=== PATIENT | male | born 1945 | race Caucasian/White ===

== ENCOUNTER 2017-06-06 11:20 | Emergency (ER) | payer OTHER ==
--- OUTSIDE RECORDS SUMMARY | 2017-06-06 11:23 | XMS REPORT | Clinical Summary ---
:1945 Author Organization [facility] Address [address] [place] [id number] Care Team Providers Name Role Phone Roverto Goddard Primary Care Provider Allergies Active Allergy Reactions Severity Noted Date Comments Carbamazepine 11/28/2015 Levofloxacin 11/28/2015 Atorvastatin Anaphylaxis High 11/28/2015 Niacin 11/28/2015 Penicillins 11/28/2015 Sulfa (Sulfonamide Antibiotics) 11/28/2015 Current Medications No known medications Active Problems Not on file Social History Tobacco Use Types Packs/Day Years Used Date Never Assessed Sex Assigned at Date Recorded Not on file Last Filed Vital Signs Not on file Plan of Treatment Health Maintenance Due Date Last Done Comments COLONOSCOPY 1995 ZOSTER VACCINE 2005 PNEUMOCOCCAL POLYSACCHARIDE VACCINE AGE 65 AND OVER 2010 PNEUMOCOCCAL-13 2010 INFLUENZA VACCINE 10/05/2016 Results Not on fileafter 06/05/2016 Insurance Payer Benefit Plan / Group Subscriber ID Type Phone Address AETNA AETNA HMO,POS,EPO, MC/EC xxxxxxxxx HMO MEDICARE MEDICARE PART A AND B xxxxxxxxxx Medicare [place] [address] [phone] [place] [id number]
--- NOTE | 2017-06-06 12:27 | RAD REPORT ---
EXAM DESCRIPTION: CT - [id number] - 06/06/2017 12:11 pm CLINICAL HISTORY: Trauma, head and neck injury. COMPARISON: 04/15/2017, 11/06/2015 TECHNIQUE: Axial 5 mm thick images of the head were obtained. Axial 2 mm thick images of the cervical spine were obtained with sagittal and coronal reconstruction images generated and reviewed. All CT scans are performed using dose optimization technique as appropriate and may include automated exposure control or mA/KV adjustment according to patient size. FINDINGS: CT HEAD WITHOUT CONTRAST: No acute hemorrhage, hydrocephalus or extra-axial collection is identified.Mild generalized brain atr ophy is present with mild periventricular and deep white matter chronic microvascular ischemic change s.No areas of brain edema or midline shift. Mild fluid is seen in the right mastoid air cell. The paranasal sinuses and mastoids are otherwise cl ear.The calvarium is intact. CT CERVICAL SPINE WITHOUT CONTRAST: No fracture or subluxation.No prevertebral soft tissues swelling is identified. Mild cervical spondyl osis present. IMPRESSION: No acute intracranial or cervical spine findings. Mild right mastoid fluid.
--- NOTE | 2017-06-06 12:43 | EDPHYS ---
Physician Documentation [facility] Name: Guillermo Diehl Age: 72 yrs Sex: Male : 1945 Arrival Date: 06/06/2017 Time: 11:22 Bed 8 Private MD: Kevin Falcon ED Physician Donal Miramontes HPI: 06/06 12:40 This 72 yrs old Male presents to ER via Wheelchair with complaints of Fall gs Injury - Yest. 12:40 Details of fall: The patient fell from seated position. Onset: The symptoms/episode gs began/occurred yesterday. Associated injuries: The patient sustained injury to the head, neck injury, anterior aspect of right shoulder. Severity of symptoms: At their worst the symptoms were moderate, in the emergency department the symptoms are unchanged. The patient has experienced similar episodes in the past, a few times. The patient has been recently seen by a physician: the patient's primary care provider. 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 - Social history:: Smoking status: Patient/guardian denies using tobacco. ROS: 12:40 Neuro: Negative for loss of consciousness. gs 12:40 All other systems are negative. Exam: 12:40 Head/Face: Normocephalic, atraumatic. Eyes: Pupils equal round and reactive to light, gs extra-ocular motions intact. Lids and lashes normal. Conjunctiva and sclera are non-icteric and not injected. Cornea within normal limits. Periorbital areas with no swelling, redness, or edema. ENT: Nares patent. No nasal discharge, no septal abnormalities noted. Tympanic membranes are normal and external auditory canals are clear. Oropharynx with no redness, swelling, or masses, exudates, or evidence of obstruction, uvula midline. Mucous membranes moist. Chest/axilla: Normal chest wall appearance and motion. Nontender with no deformity. No lesions are appreciated. Cardiovascular: Regular rate and rhythm with a normal S1 and S2. No gallops, murmurs, or rubs. Normal PMI, no JVD. No pulse deficits. Respiratory: Lungs have equal breath sounds bilaterally, clear to auscultation and percussion. No rales, rhonchi or wheezes noted. No increased work of breathing, no retractions or nasal flaring. Abdomen/GI: Soft, non-tender, with normal bowel sounds. No distension or tympany. No guarding or rebound. No evidence of tenderness throughout. Back: No spinal tenderness. No costovertebral tenderness. Full range of motion. Skin: Warm, dry with normal turgor. Normal color with no rashes, no lesions, and no evidence of cellulitis. Neuro: Awake and alert, GCS 15, oriented to person, place, time, and situation. Cranial nerves II-XII grossly intact. Motor strength 5/5 in all extremities. Sensory grossly intact. Cerebellar exam normal. Normal gait. 12:40 Constitutional: The patient appears alert, awake. 12:40 Neck: C-spine: vertebral tenderness, that is mild. 12:40 Musculoskeletal/extremity: Circulation is intact in all extremities. Sensation intact. Joints: the right shoulder displays deformity, painful range of motion, swelling, tenderness. Vital Signs: 11:29 BP 114 / 64; Pulse 75; Resp 15; Temp 97.8(TE); Pulse Ox 98% on R/A; Weight 69.85 kg lk1 (R); Height 5 ft. 7 in. (170.18 cm) (R); 12:30 BP 118 / 68; Pulse 74; Resp 16; Pulse Ox 100% on R/A; hb 13:30 BP 116 / 70; Pulse 70; Resp 14; Pulse Ox 100% on R/A; hb 11:29 Body Mass Index 24.12 (69.85 kg, 170.18 cm) lk1 MDM: 11:40 Patient medically screened. gs 12:40 Differential diagnosis: closed head injury, contusion, fracture. Data reviewed: vital gs signs, nurses notes. 06/06 11:40 Order name: CT Head C Spine; Complete Time: 12:40 gs Administered Medications: No medications were administered Point of Care Testing: Blood Glucose: 12:38 Blood Glucose: 167 mg/dL; hb Ranges: Critical Glucose Levels:Adult <50 mg/dl or >400 mg/dl <40 mg/dl or >180 mg/dl Disposition: 06/06/17 12:42 Discharged to Home. Impression: Contusion of other part of head. - Condition is Stable. - Discharge Instructions: Head Injury, Adult. - Medication Reconciliation Form, Thank You Letter, Antibiotic Education, Prescription Opioid Use form. - Follow up: Private Physician; When: 2 - 3 days; Reason: Re-evaluation by your physician. Signatures: Dispatcher [employer] Monalisa Traore RN RN lk1 Lucila Carlson RN RN Donal Miramontes MD MD
--- NOTE | 2017-06-06 12:43 | ER ---
Nurse's Notes [facility] Name: Guillermo Diehl Age: 72 yrs Sex: Male : 1945 Arrival Date: 06/06/2017 Time: 11:22 Bed 8 Private MD: Kevin Falcon Diagnosis: Contusion of other part of head Presentation: 06/06 11:25 Presenting complaint: Child states: "He fell last night and it left a knot on his head. lk1 He has pain in his right shoulder. He had a Xray this morning and his shoulder is broken. We talked to his doctor about it after the Xray and he wanted us to have his head checked out because he has had a brain bleed before.". Transition of care: patient was not received from another setting of care. Onset of symptoms was June 05, 2017 at 20:00. Care prior to arrival: None. 11:25 Method Of Arrival: Wheelchair lk1 11:25 Acuity: JOSE 3 lk1 Triage Assessment: 11:28 General: Appears in no apparent distress. Behavior is calm, cooperative, appropriate lk1 for age. Pain: Complains of pain in anterior aspect of right shoulder and posterior aspect of right shoulder. Neuro: Level of Consciousness is awake, alert, obeys commands, Speech is normal, Facial symmetry appears normal. 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 - Social history:: Smoking status: Patient/guardian denies using tobacco. Screenin:40 Abuse screen: Denies threats or abuse. Denies injuries from another. Nutritional aj screening: No deficits noted. Tuberculosis screening: No symptoms or risk factors identified. Fall Risk Fall in past 12 months (25 points). No secondary diagnosis (0 pts). IV access (20 points). Ambulatory Aid- None/Bed Rest/Nurse Assist (0 pts). Gait- Weak (10 pts.). Mental Status- Overestimates/Forgets Limitations (15 pts.). Assessment: 11:40 General: Appears in no apparent distress. comfortable, Behavior is calm, cooperative, aj appropriate for age. Pain: Complains of pain in posterior aspect of right shoulder and anterior aspect of right shoulder. Neuro: Level of Consciousness is awake, alert, obeys commands, Oriented to person, place, time, situation. Respiratory: Airway is patent Respiratory effort is even, unlabored, Respiratory pattern is regular, symmetrical. Derm: Skin is intact, is healthy with good turgor, Skin is pink, warm \\T\\ dry. normal, Bruising that is dark purple, on right side of the back of head. Musculoskeletal: Circulation, motion, and sensation intact. Range of motion: limited in right shoulder Reports pain in posterior aspect of right shoulder and anterior aspect of right shoulder. 12:30 Reassessment: Patient appears in no apparent distress at this time. No changes from hb previously documented assessment. Patient and/or family updated on plan of care and expected duration. Pain level reassessed. 13:30 Reassessment: Patient appears in no apparent distress at this time. No changes from hb previously documented assessment. Patient and/or family updated on plan of care and expected duration. Pain level reassessed. Vital Signs: 11:29 BP 114 / 64; Pulse 75; Resp 15; Temp 97.8(TE); Pulse Ox 98% on R/A; Weight 69.85 kg lk1 (R); Height 5 ft. 7 in. (170.18 cm) (R); 12:30 BP 118 / 68; Pulse 74; Resp 16; Pulse Ox 100% on R/A; hb 13:30 BP 116 / 70; Pulse 70; Resp 14; Pulse Ox 100% on R/A; hb 11:29 Body Mass Index 24.12 (69.85 kg, 170.18 cm) lk1 ED Course: 11:22 Patient arrived in ED. as 11:22 Kevin Falcon MD is Private Physician. as 11:27 Triage completed. lk1 11:29 Arm band placed on right wrist. lk1 11:30 Kandi Padilla, CATRINA is Primary Nurse. aj 11:32 Donal Miramontes MD is Attending Physician. gs 11:40 Patient has correct armband on for positive identification. Placed in gown. Bed in low aj position. Call light in reach. Side rails up X2. Adult w/ patient. Door closed. Noise minimized. Warm blanket given. Pillow given. 11:40 Sling applied to right arm. john paul 12:11 CT Head C Spine In Process Unspecified. EDMS 13:30 No provider procedures requiring assistance completed. IV discontinued, intact, hb bleeding controlled, No redness/swelling at site. Pressure dressing applied. Administered Medications: No medications were administered Point of Care Testing: Blood Glucose: 12:38 Blood Glucose: 167 mg/dL; hb Ranges: Outcome: 12:42 Discharge ordered by . 13:30 Discharged to home via wheelchair, with family. hb 13:30 Condition: stable 13:30 Discharge instructions given to patient, family, Instructed on discharge instructions, follow up and referral plans. Demonstrated understanding of instructions, follow-up care. 13:39 Patient left the ED. hb Signatures: Dispatcher [employer] EDMS Kandi Padilla RN RN aj Martinez, Amelia as Kluge, Leah, RN RN lk1 Lucila Carlson RN RN Donal Miramontes MD MD
[2017-06-06 13:42] VITALS: TEMP 97.8
[2017-06-06 13:43] VITALS: O2SAT 100
[2017-06-06 13:44] VITALS: BP 116/70
== END 2017-06-06 13:39 | disposition home or self-care (01) ==
LOC: ER 11:20
DX: S00.83XA Contusion of other part of head, initial encounter (principal); W18.39XA Other fall on same level, initial encounter; Y93.89 Activity, other specified; I10 Essential (primary) hypertension; Z86.73 Personal history of transient ischemic attack (TIA), and cerebral infarction without residual deficits; Z88.0 Allergy status to penicillin; Z88.2 Allergy status to sulfonamides; Z88.8 Allergy status to other drugs, medicaments and biological substances
CPT/HCPCS: 70450; 72125; 82962; 99283

== ENCOUNTER 2017-11-29 10:27 | Inpatient (IN) | payer OTHER ==
--- OUTSIDE RECORDS SUMMARY | 2017-11-29 10:28 | XMS REPORT | Clinical Summary ---
:1945 Author Organization [facility] Address [address] [place] [address] Care Team Providers Name Role Phone Roverto [...] Health Maintenance Due Date Last Done Comments COLON CANCER SCREENING 1995 SHINGRIX VACCINE (#1) 1995 ZOSTER VACCINE 2005 PNEUMOCOCCAL POLYSACCHARIDE VACCINE AGE 65 AND OVER 2010 PNEUMOCOCCAL-13 2010 INFLUENZA VACCINE 10/05/2017 Results Not on fileafter 11/28/2016 Insurance Payer Benefit Plan / Group Subscriber ID Type Phone Address AETNA AETNA HMO,POS,EPO, MC/EC xxxxxxxxx HMO MEDICARE MEDICARE PART A AND B xxxxxxxxxx Medicare [place] [place] [address] [place] [id number]
--- OUTSIDE RECORDS SUMMARY | 2017-11-29 10:30 | XMS REPORT | Continuity of Care Document ---
:1945 Author Organization Interface Problems Problem Status Onset Classification Date Comments Source Date Reported FALL Active [address] SDH Active [address] Center LILY LIFE Active [facility] FLIGHT Medical BILLING#[id number] [place] CVA (<span Resolved Problem 11/12/2015 [facility] ID="[id number] Medical 67">Confirmed< Center /span>) DM (<span Resolved Problem 11/12/2015 [facility] ID="[id number] Medical 39">Confirmed< Center /span>) HTN (<span Resolved Problem 11/12/2015 [facility] ID="[id number] Medical 93">Confirmed< Center /span>) Seizure Resolved Problem 11/12/2015 [facility] SUBDURAL Active [facility] HEMORRHAGE DUE Medical TO Center INJURY Medications Medication Details Route Status Patient Ordering Order Source Instructions Provider Date Vimpat 100 mg, 1 tab, No Longer [facility] Route: PO, Active 016 Medical Drug form: Center TAB, Q12H, Dosing Weight 81.818, kg, Start date: 11/08/15 21:00:00 CDT, Duration: 30 day, Stop date: 12/08/15 9:00:00 CDTNotes: Same as: Vimpat Physical See Active [facility] Therapy Instructions, 016 [facility] CHANELLE AVINA Center Evaluate and Treat ___ times per week for ____ weeks, # 1 box, 0 Refill(s) Occupational See Active [facility] Therapy Instructions, 016 [facility] CHANELLE AVINA Center Evaluate and Treat ___ times per week for ____ weeks, # 1 box, 0 Refill(s) Streptococcus 0.5 mL, Route: Inactive [facility] pneumoniae IM, Drug Form: 016 [facility] serotype 1 INJ, Daily, [place] capsular Start date: antigen 11/08/15 diphtheria 9:00:00 CDT, [id number] protein Duration: 1 conjugate doses or vaccine / times, Stop Streptococcus date: 11/08/15 pneumoniae 9:00:00 serotype 14 CDTNotes: capsular Lightly roll antigen vial (DO NOT diphtheria SHAKE) before [id number] protein administration conjugate . (Same as: vaccine / Prevnar 13) Streptococcus pneumoniae serotype 18C capsular antigen d Calmoseptine 1 appl, Route: No Longer [facility] TOP, TID, Drug Active 016 Medical form: OINT, Center PRN Rash, Start date: 11/07/15 9:16:00 CDT, Duration: 30 day, Stop date: 12/07/15 9:15:00 CDTNotes: (Same as: Calmoseptine) Vitamin C 1,000 mg, 2 No Longer [facility] tab, Route: Active 016 Medical PO, Drug form: Center TAB, Daily, Dosing Weight 81.818, kg, Start date: 11/07/15 9:00:00 CDT, Duration: 30 day, Stop date: 12/06/15 9:00:00 CDTNotes: (Same as: Vitamin C) Finasteride 5 mg, 1 tab, No Longer [facility] Route: PO, Active 016 Medical Drug form: Center TAB, Daily, Dosing Weight 81.818, kg, Start date: 11/07/15 9:00:00 CDT, Duration: 30 day, Stop date: 12/06/15 9:00:00 CDTNotes: (Same as: Proscar) "Do Not Crush" Women of childbearing age should not touch or handle broken tablets Lisinopril 10 mg, 1 tab, No Longer [facility] Route: PO, Active 016 Medical Drug form: Center TAB, Daily, Dosing Weight 81.818, kg, Start date: 11/07/15 9:00:00 CDT, Duration: 30 day, Stop date: 12/06/15 9:00:00 CDTNotes: (Same as: Prinivil, Zestril) Vimpat 100 mg, 1 tab, No Longer [facility] Route: PO, Active 016 Medical Drug form: Center TAB, Q12H, Dosing Weight 81.818, kg, Start date: 11/06/15 21:00:00 CDT, Duration: 30 day, Stop date: 12/06/15 9:00:00 CDTNotes: Same as: Vimpat Saline Flush 10 ml, Route: No Longer [facility] 0.9% IVP, Drug Active 016 Medical Form: INJ, Center Dosing Weight 81.818, kg, Q12H, Start date: 11/06/15 21:00:00 CDT, Duration: 30 day, Stop date: 12/06/15 9:00:00 CDTNotes: (Same as: BD Posiflush) Docusate 100 mg, 1 cap, No Longer [facility] Route: PO, Active Medical Drug form: Center CAP, Q12H, Dosing Weight 81.818, kg, Start date: 11/06/15 21:00:00 CDT, Duration: 30 day, Stop date: 12/06/15 9:00:00 CDTNotes: (Same as: Colace) (Do Not Crush) sennosides, ASSISTED 8.6 mg, 1 tab, No Longer [facility] Route: PO, Active Medical Drug Form: Center TAB, Dosing Weight 81.818, kg, Q12H, Start date: 11/06/15 21:00:00 CDT, Duration: 30 day, Stop date: 12/06/15 9:00:00 CDTNotes: (Same as: Senokot) Levetiracetam 500 mg, 1 tab, No Longer [facility] Route: PO, Active Medical Drug form: Center TAB, Q12H, Dosing Weight 81.818, kg, Start date: 11/06/15 21:00:00 CDT, Duration: 7 day, Stop date: 11/13/15 9:00:00 CDTNotes: (Same as:Keppra) lisinopril 10 10 mg=1 tab, Active [facility] mg oral tablet PO, Daily, 0 016 Medical Refill(s) Center 24 HR Metformin 1,000 mg=1 Active [facility] hydrochloride tab, PO, 016 Medical 1000 MG Daily, 0 Center Extended Refill(s) Release Tablet rivaroxaban 20 20 mg=1 tab, No Longer [facility] [place] MG Oral Tablet PO, QPM, # 30 Active 016 Medical [Xarelto] tab, 3 Center Refill(s) Vitamin C 1000 1,000 mg=1 Active [place] mg oral tablet tab, PO, 016 Medical Daily, 0 Center Refill(s) finasteride 5 5 mg=1 tab, Active [place] mg oral tablet PO, Daily, 0 016 Medical Refill(s) [place] Glipizide 10 MG 10 mg=1 tab, Active [place] Oral Tablet PO, BID, 0 016 Medical Refill(s) Center lacosamide 100 100 mg=1 tab, Active [place] MG Oral Tablet PO, BID, 0 016 Medical [Vimpat] Refill(s) [facility] Hydralazine 20 mg, 1 mL, No Longer [facility] Route: IVP, Active [facility] Drug form: Center INJ, Q4H, Dosing Weight 81.818, kg, PRN Hypertension, Start date: 11/06/15 19:57:00 CDT, Duration: 30 day, Stop date: 12/06/15 19:56:00 CDTNotes: (Same as: Apresoline) Push over 5 minutes Neutra-Phos 2 pkt, Route: No Longer [facility] PO, Drug Form: Active [facility] PDR/REC, Center Dosing Weight 81.818, kg, PRN, PRN Abnormal Lab Result, FOR ICU USE ONLY, Start date: 11/06/15 19:42:00 CDT, Duration: 30 day, Stop date: 12/06/15 19:41:00 CDTNotes: (Same as: Neutra-Phos) Each 1.25 gm pkt has 250mg phosphorous. Mix w/2.5oz water and stir. potassium 45 mmol, 15 No Longer [facility] phosphate + mL, Route: Active 016 Medical sodium chloride IVPB, PRN, Center 0.9% INJ 250 mL Dosing Weight 81.818, kg, PRN Abnormal Lab Result, Start date: 11/06/15 19:42:00 CDT, Duration: 30 day, Stop date: 12/06/15 19:41:00 CDT, FOR ICU USE ONLYNotes: (Same as: K Phosphate.) 1 mMol phoshate has 1.47 mEq potassium Infuse over 4 hours sodium 45 mmol, 15 No Longer [facility] phosphate + mL, Route: Active 016 Medical sodium chloride IVPB, PRN, Center 0.9% INJ 250 mL Dosing Weight 81.818, kg, PRN Abnormal Lab Result, Start date: 11/06/15 19:42:00 CDT, Duration: 30 day, Stop date: 12/06/15 19:41:00 CDT, FOR ICU USE ONLY potassium 20 mEq, 100 No Longer [facility] chloride mL, Route: Active 016 Medical IVPB, Drug Center form: INJ, PRN, Dosing Weight 81.818, kg, PRN Abnormal Lab Result, Via central line, Start date: 11/06/15 19:42:00 CDT, Duration: 30 day, Stop date: 12/06/15 19:41:00 CDT, FOR ICU USE ONLYNotes: (Same as: KCL) Infuse no faster than 10 mEq/hr if given peripherally. Calcium 1,000 mg, 2 No Longer [facility] Carbonate 500 tab, Route: Active Medical MG Chewable PO, Drug form: Center Tablet CHEWTAB, PRN, Dosing Weight 81.818, kg, PRN Abnormal Lab Result, FOR ICU USE ONLY, Start date: 11/06/15 19:42:00 CDT, Duration: 30 day, Stop date: 12/06/15 19:41:00 CDTNotes: (Same As: Tumaden) Calcium Carbonate 500 vv=723 mg elemental calcium Dose= mg calcium carbonate ( mg elemental calcium) Calcium 1 gm, 10 mL, No Longer [facility] Gluconate Route: IVPB, Active 016 Medical PRN, Dosing Center Weight 81.818, kg, PRN Abnormal Lab Result, Start date: 11/06/15 19:42:00 CDT, Duration: 30 day, Stop date: 12/06/15 19:41:00 CDT, FOR ICU USE ONLYNotes: WASTE: F/P - Sink; E - Municipal Trash Bin Magnesium Oxide 800 mg, 2 tab, No Longer [facility] [place] Route: PO, Active 016 Medical Drug form: Center TAB, PRN, Dosing Weight 81.818, kg, PRN Abnormal Lab Result, FOR ICU USE ONLY, Start date: 11/06/15 19:42:00 CDT, Duration: 30 day, Stop date: 12/06/15 19:41:00 CDTNotes: (Same as: Mag-Ox 400) Magnesium oxide [id number] elemental magnesium Dose=____mg magnesium oxide (___mg elemental magnesium) Magnesium 2 gm, 50 mL, No Longer [place] Sulfate Route: IVPB, Active 016 Medical Drug form: Center INJ, PRN, Dosing Weight 81.818, kg, PRN Abnormal Lab Result, Start date: 11/06/15 19:42:00 CDT, Duration: 30 day, Stop date: 12/06/15 19:41:00 CDT, FOR ICU USE ONLYNotes: WASTE: F/P - Sink; E - Municipal Trash Bin tramadol 50 mg, 1 tab, No Longer [place] hydrochloride Route: PO, Active 016 Medical 50 MG Oral Drug form: Center Tablet TAB, Q6H, Dosing Weight 81.818, kg, PRN Pain Score 4-6, Start date: 11/06/15 19:42:00 CDT, Duration: 30 day, Stop date: 12/06/15 19:41:00 CDTNotes: Not to exceed 400mg/day. (Same As: Ultram) Acetaminophen 650 mg, 2 tab, No Longer [place] Route: PO, Active 016 Medical Drug form: Center TAB, Q6H, Dosing Weight 81.818, kg, PRN Pain 1-3/Temp > 100.4 F, Start date: 11/06/15 19:42:00 CDT, Duration: 30 day, Stop date: 12/06/15 19:41:00 CDTNotes: Do not exceed 4 gm/day. (Same as: Tylenol) Dextrose 50% 6.25 gm, 12.5 No Longer [place] Syringe mL, Route: Active 016 Medical IVP, Drug Center Form: INJ, Dosing Weight 81.818, kg, PRN, PRN Abnormal Lab Result, Start date: 11/06/15 18:05:00 CDT, Duration: 30 day, Stop date: 12/06/15 18:04:00 CDT Regular 3 unit, 0.03 No Longer [facility] Insulin, Human mL, Route: Active 016 Medical 100 UNT/ML SUB-Q, Drug Center Injectable form: SOLN, Solution PRN, Dosing Weight 81.818, kg, PRN Abnormal Lab Result, Start date: 11/06/15 18:05:00 CDT, Duration: 30 day, Stop date: 12/06/15 18:04:00 CDTNotes: (Same as: Humulin R) Roll in palms of hands gently; Do not shake vigorously. "single patient use only" (Restricted to patients requiring a dose > 60 units) WASTE: F/P - Black; E - Municipal Trash Bin Stable for 28 days at room temperature Expires in days from Date Saline Flush 10 ml, Route: No Longer [facility] 0.9% IVP, Drug Active 016 Medical Form: INJ, Center Dosing Weight 81.818, kg, PRN, PRN Line Flush, Start date: 11/06/15 18:05:00 CDT, Duration: 30 day, Stop date: 12/06/15 18:04:00 CDTNotes: (Same as: BD Posiflush) Bisacodyl 10 mg, 1 supp, No Longer [facility] Route: AR, Active 016 Medical Drug form: [place] SUPP, Daily, Dosing Weight 81.818, kg, PRN Constipation, Start date: 11/06/15 18:05:00 CDT, Duration: 30 day, Stop date: 12/06/15 18:04:00 CDTNotes: (Same As: Dulcolax, Bisco-Lax) Ondansetron 4 mg, 2 mL, No Longer [facility] Route: IVP, Active 016 Medical Drug form: [place] INJ, Q8H, Dosing Weight 81.818, kg, PRN Nausea & Vomiting, Start date: 11/06/15 18:05:00 CDT, Duration: 30 day, Stop date: 12/06/15 18:04:00 CDTNotes: (Same as: Zofran) MEDICATION WASTE Product Size: 4 mg Product Wasted: 0 mg Sodium Chloride 1,000 mL, No Longer [facility] 0.154 MEQ/ML Rate: 75 Active 016 Medical Injectable ml/hr, Infuse Center Solution over: 13.3 hr, Route: IV, Dosing Weight 81.818 kg, Total Volume: 1,000, Start date: 11/06/15 18:05:00 CDT, Duration: 30 day, Stop date: 12/06/15 18:04:00 CDT Levetiracetam 1,000 mg, Inactive [facility] Route: IVPB, Medical ONCE, Dosing Center Weight 81.818, kg, Start date: 11/06/15 18:05:00 CDT, Stop date: 11/06/15 18:05:00 CDTNotes: Same as Keppra Mix with 100 mL NS, LR or D5W MEDICATION WASTE Product Size: 500 mg Product Wasted: 0 mg Acetaminophen 1 tab, Route: Inactive [facility] 325 MG / PO, Drug Form: Medical Hydrocodone TAB, Dosing Center Bitartrate 10 Weight 81.818, MG Oral Tablet kg, Q4H, PRN Pain Score 4-6, Start date: 11/06/15 18:05:00 CDT, Duration: 30 day, Stop date: 12/06/15 18:04:00 CDTNotes: Do not exceed 4gm/day of acetaminophen. (Same as: [place] 325/10) Acetaminophen 1 tab, Route: Inactive [facility] 325 MG / PO, Drug Form: Medical Hydrocodone TAB, Dosing Center Bitartrate 5 MG Weight 81.818, Oral Tablet kg, Q4H, PRN Pain Score 1-3, Start date: 11/06/15 18:05:00 CDT, Duration: 30 day, Stop date: 12/06/15 18:04:00 CDTNotes: (Same as: [place] 325/5) Do not exceed 4gm/day of acetaminophen. Saline Flush 10 mL, Route: No Longer [facility] 0.9% IVP, Drug Active 016 Medical Form: INJ, Center Dosing Weight 81.818, kg, PRN, PRN Line Flush, Start date: 11/06/15 16:54:00 CDT, Duration: 30 day, Stop date: 12/06/15 16:53:00 CDTNotes: (Same as: BD Posiflush) Metformin PO, 0 Inactive [facility] Refill(s) [address] [place] [address] Lisinopril PO, Daily, 0 Inactive [facility] Refill(s) [address] [place] [address] 3 ML SUB-Q, Daily, Active [facility] liraglutide 6 PRN Abnormal [address] [place] [address] MG/ML Prefilled Lab Result, [place] Syringe Given PRN is [Victoza] glucose >250, 0 Refill(s) Xarelto PO, 0 Inactive [facility] Refill(s) [address] [place] [address] Vitamin C 0 Refill(s) Inactive [address] Finasteride PO, Daily, 0 Inactive [facility] Refill(s) [address] [place] [address] Gl[facility]ide [facility], Daily, [address] [address] [place] [address] Vimpat BID, [address] [address] [place] [address] Allergies, Adverse Reactions, Alerts Substance Category Reaction Severity Reaction Status Date Comments Source type Reported Levaquin Assertion Drug Active [facility] Lipitor Assertion Drug Active [facility] niacin Assertion Drug Active [facility] penicillins Assertion Drug Active [facility] sulfa drugs Assertion Drug Active [facility] Immunizations Immunization Date Given Site Status Last Updated Comments Source pneumococcal 11/08/2015 Not Given [facility] 13valent vaccine [facility] Results Order Name Results Value Reference Date Interpretation Comments Source Range CHEM PANEL Magnesium Lvl 2.2 mg/dL 1.8 - 2.4 11/[address] CHEM PANEL Phosphorus 2.6 mg/dL 2.5 - 4.5 11/[address] ELECTROLYTE AGAP 15.2 meq/L 10.0 - 11/07 [facility] S 20.0 [facility] ELECTROLYTE Sodium Lvl 140 meq/L 135 - 145 11/07 [facility]2015 [facility] ELECTROLYTE Potassium Lvl 4.2 meq/L 3.5 - 5.1 11/07 [facility] ELECTROLYTE Chloride Lvl 108 meq/L 95 - 109 11/07 [facility] ELECTROLYTE CO2 21 meq/L 24 - 32 11/07 [facility] 2015 [facility] ELECTROLYTE Glucose Lvl 171 mg/dL 70 - 99 11/07 [facility] ELECTROLYTE BUN 13 mg/dL 7 - 22 11/07 [facility] 2015 [facility] ELECTROLYTE Creatinine 1.03 mg/dL 0.50 - 11/07 [facility] Lvl 1.40 [facility] ELECTROLYTE eGFR 73 11/07 Result Comment: The eGFR is calculated using the CKD-EPI formula. In most young, healthy individuals the eGFR will be >90 mL/ min/1.73m2. The eGFR declines with age. An eGFR of 60-89 may be normal in [facility] mL/min/1.7 some populations, particularly the elderly, for whom the CKD-EPI formula has not been extensively validated. Use of the eGFR is not recommended in the following populations: [address] Individuals with unstable creatinine concentrations, including patients and those with serious co-morbid conditions. Patients with extremes in muscle mass or diet. The data above are obtained from the National Kidney Disease Education Program (NKDEP) which additionally recommends that when the eGFR is used in patients with extremes of body mass index for purposes of drug dosing, the eGFR should be multiplied by the estimated BMI. ELECTROLYTE Calcium Lvl 9.2 mg/dL 8.5 - 10.5 11/07 [facility] HEMATOLOGY Lymphocytes 29.2 % 20.0 - 09 [facility] 40.0 [facility] HEMATOLOGY Segs 57.6 % 45.0 - 11/07 [facility] 75.0 [facility] HEMATOLOGY Eosinophils 5.6 % 0.0 - 4.0 11/07 2015 [facility] HEMATOLOGY Monocytes 6.7 % 2.0 - 12.0 11/[address] HEMATOLOGY Basophils # 0.1 K/CMM 0.0 - 0.2 11/07 [facility]2015 [facility] HEMATOLOGY Eosinophils # 0.5 K/CMM 0.0 - 0.5 11/[address] HEMATOLOGY Lymphocytes # 2.4 K/CMM 1.0 - 5.5 11/[address] HEMATOLOGY Segs-Bands # 4.8 K/CMM 1.5 - 8.1 11/07 [facility] HEMATOLOGY Basophils 0.9 % 0.0 - 1.0 11/07 [facility] HEMATOLOGY Monocytes # 0.6 K/CMM 0.0 - 0.8 11/07 [facility] HEMATOLOGY Hct 42.5 % 42.0 - 11/07 54.0 [facility] HEMATOLOGY Hgb 14.5 g/dL 14.0 - 11/07 18.0 [facility] HEMATOLOGY RBC 4.63 M/CMM 4.70 - 11/07 [place] 6.10 /2015 [facility] HEMATOLOGY WBC 8.4 K/CMM 3.7 - 10.4 11/07 [facility] HEMATOLOGY MPV 9.8 fL 7.4 - 10.4 11/07 [facility] HEMATOLOGY MCV 91.9 fL 80.0 - 11/07 [facility] 94.0 [facility] HEMATOLOGY Platelet 248 K/CMM 133 - 450 11/07 [facility] HEMATOLOGY RDW 13.7 % 11.5 - 11/07 14.5 [facility] HEMATOLOGY MCHC 34.2 g/dL 32.0 - 11/07 [place] 36.0 [facility] HEMATOLOGY MCH 31.4 pg 27.0 - 11/07 [place] 31.0 [facility] PARATHYROID Ca Norm WB 1.07 1.05 - 11/07 [facility] PROFILE mMol/L 1. [facility] PARATHYROID Ca Ion WB 1.06 1.05 - 11/07 [facility] PROFILE mMol/L 1. [facility] BACTERIAL - MRSA by PCR Negative 11/06 [facility] SEROLOGY [facility] (11/07/15 9:00 AM) [place] CARDIAC Troponin-T null 0.000 - 11/06 [facility] ENZYMES 0.100 /2015 [facility] CARDIAC Troponin-I null 0.00 - 11/06 [facility] ENZYMES 0.40 /2015 [facility] CARDIAC Total CK 45 unit/L - 11/06 [facility] ENZYMES /2015 [facility] CARDIAC Total CK 45 unit/L - 11/06 [facility] ENZYMES /2015 [facility] CARDIAC Troponin-I null 0.00 - 11/06 [facility] ENZYMES 0.40 /2015 [facility] CHEM PANEL Globulin 3.7 g/dL 2.7 - 4.2 11/[address] CHEM PANEL A/G Ratio 0.9 0.7 - 1.6 11/[address] CHEM PANEL Total Protein 7.2 g/dL 6.4 - 8.4 11/[address] CHEM PANEL Albumin Lvl 3.5 g/dL 3.5 - 5.0 11/[address] CHEM PANEL Alk Phos 67 unit/L 39 - 136 11/[address] CHEM PANEL ALT 24 unit/L 0 - 65 11/[address] CHEM PANEL AST 10 unit/L 0 - 37 11/[address] CHEM PANEL Bili Indirect 0.4 mg/dL 0.0 - 1.0 11/[address] CHEM PANEL Bili Total 0.5 mg/dL 0.2 - 1.3 11/[address] CHEM PANEL Bili Direct 0.1 mg/dL 0.0 - 0.3 11/[address] CHEM PANEL Phosphorus 2.1 mg/dL 2.5 - 4.5 11/[address] CHEM PANEL Magnesium Lvl 1.8 mg/dL 1.8 - 2.4 11/[address] CHEM PANEL eGFR 63 11/06 Result Comment: The eGFR is calculated using the CKD-EPI formula. In most young, healthy individuals the eGFR will be >90 mL/ min/1.73m2. The eGFR declines with age. An eGFR of 60-89 may be normal in [facility] mL/min/1.7 some populations, particularly the elderly, for whom the CKD-EPI formula has not been extensively validated. Use of the eGFR is not recommended in the following populations: [address] Individuals with unstable creatinine concentrations, including patients and those with serious co-morbid conditions. Patients with extremes in muscle mass or diet. The data above are obtained from the National Kidney Disease Education Program (NKDEP) which additionally recommends that when the eGFR is used in patients with extremes of body mass index for purposes of drug dosing, the eGFR should be multiplied by the estimated BMI. CHEM PANEL Calcium Lvl 8.9 mg/dL 8.5 - 10.5 11/[address] CHEM PANEL Creatinine 1.17 mg/dL 0.50 - 09 [facility] Lvl 1.40 /2015 [facility] CHEM PANEL BUN 13 mg/dL 7 - 22 11/06 [facility]2015 [facility] CHEM PANEL Sodium Lvl 142 meq/L 135 - 145 11/[address] CHEM PANEL Potassium Lvl 3.9 meq/L 3.5 - 5.1 11/[address] CHEM PANEL Chloride Lvl 107 meq/L 95 - 109 11/06 [facility] CHEM PANEL AGAP 15.9 meq/L 10.0 - 11/06 [facility] 20.0 [facility] CHEM PANEL CO2 23 meq/L 24 - 32 11/[address] CHEM PANEL Glucose Lvl 205 mg/dL 70 - 99 11/[address] HEMATOLOGY Monocytes # 0.7 K/CMM 0.0 - 0.8 11/[address] HEMATOLOGY Basophils # 0.1 K/CMM 0.0 - 0.2 11/[address] HEMATOLOGY Lymphocytes # 2.5 K/CMM 1.0 - 5.5 11/[address] HEMATOLOGY Eosinophils # 0.4 K/CMM 0.0 - 0.5 11/06 [facility] [address] [place] [address] HEMATOLOGY Segs 67.4 % 45.0 - 11/06 [facility] 75.0 /2015 [facility] HEMATOLOGY Monocytes 6.3 % 2.0 - 12.0 11/[address] HEMATOLOGY Lymphocytes 21.4 % 20.0 - 11/06 [facility] 40.0 [facility] HEMATOLOGY Segs-Bands # 7.8 K/CMM 1.5 - 8.1 11/[address] HEMATOLOGY Eosinophils 3.8 % 0.0 - 4.0 11/[address] HEMATOLOGY Basophils 1.1 % 0.0 - 1.0 11/[address] HEMATOLOGY TEG Interp Thrombelas 11/06 [facility] show shortened value of R. 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.CPT :26330 HEMATOLOGY Ly30 3.9 % 0.0 - 7.5 11/06 [facility] [address] [place] [address] HEMATOLOGY TEG Data See Note 11/06 [facility] [place] /[address] [place], [place] [id number]/07/15 12:43 AM) [facility] HEMATOLOGY Coag Index 2.2 -3.0-3.0 - 11/06 [place] 3.0 [facility] HEMATOLOGY G-value 11.0 K 4.5 - 11.0 11/06 [facility] d/sc /2015 [facility] HEMATOLOGY R-time 4.8 min 5.0 - 10.0 11/06 [facility] HEMATOLOGY Angle 69.2 53.0 - 11/06 [facility] degrees 72.0 [facility] HEMATOLOGY Max Amp 68.8 mm 50.0 - 11/06 [place] 70.0 [facility] HEMATOLOGY K-time 1.5 min 1.0 - 3.0 11/06 [facility] HEMATOLOGY INR 1.16 0.85 - 11/06 [place] 1.17 [facility] HEMATOLOGY PT 15.1 s 12.0 - 11/06 [place] 14.7 /2015 [facility] HEMATOLOGY PTT 32.9 s 22.9 - 11/06 [place] 35.8 [facility] HEMATOLOGY MCV 91.2 fL 80.0 - 11/06 [place] 94.0 [facility] HEMATOLOGY Hct 42.1 % 42.0 - 11/06 [place] 54.0 /2015 [facility] HEMATOLOGY MCHC 33.1 g/dL 32.0 - 09 [place] 36.0 [facility] HEMATOLOGY Platelet 251 K/CMM 133 - 450 11/06 [facility] HEMATOLOGY RDW 13.5 % 11.5 - 11/06 [place] 14.5 [facility] HEMATOLOGY MPV 10.0 fL 7.4 - 10.4 11/06 [facility] HEMATOLOGY RBC 4.62 M/CMM 4.70 - 11/06 [place] 6.10 [facility] HEMATOLOGY Hgb 13.9 g/dL 14.0 - 11/06 [place] 18.0 [facility] HEMATOLOGY WBC 11.6 K/CMM 3.7 - 10.4 11/06 [facility] HEMATOLOGY MCH 30.2 pg 27.0 - 11/06 [place] 31.0 [facility] PARATHYROID Ca Ion WB 1.17 1.05 - 11/06 [facility] PROFILE mMol/L 1.25 [facility] PARATHYROID Ca Norm WB 1.17 1.05 - 11/06 [facility] PROFILE mMol/L 1.25 [facility] Chest 1view Chest 1view EXAM: XR CHEST 1 VIEW 11/06 - [facility] [place] DX DX /2015 - Medical This report was dictated by a Imaging System Administrator/Fellow. I have personally reviewed the images as Center well as the Resident's interpretation and agree with the findings. DATE: 11/07/2015 3:00 AM CDT Read by: Lex Helm MD Resident: Lex Helm MD Dictated Date/time: 11/07/15 02:05 Electronically Signed by: Og Morley 11/07/15 07:39 FINAL REPORT INDICATION: Abnormal chest sounds COMPARISON: None. TECHNIQUE: AP chest FINDINGS: Lungs and pleura: Scattered left midlung and lung base airspace opacities with probably associated pleural calcifications. Left diaphragmatic pleural calcifications. Left pleural thickening/fluid noted. A calcific granuloma seen in the right upper lobe. Heart and mediastinum: The heart size is normal for technique. The mediastinal contours are normal. Bones: No acute bony abnormality is identified. IMPRESSION: 1. Left mid and lower lung opacities may represent atelectasis, infection , or scarring. Underlying neoplastic process may not be excluded. 2. Multifocal calcifications of the pleura along the left diaphragm, left lateral pleura as well as mediastinal pleura, with associated pleural thickening /fluid. Differential diagnosis includes asbesto sis related pleural disease, sequela of prior empyema or hemothorax. Further characterization with nonemergent contrast enhanced CT chest may be helpful if clinically warranted. CARDIAC Troponin-T null 0.000 - 11/05 [facility] [place] ENZYMES 0.100 /2015 [facility] CARDIAC Troponin-I null 0.00 - 11/05 [facility] [place] ENZYMES 0.40 /2016 [facility] CARDIAC Total CK 43 unit/L 12 - 191 11/05 [facility] [place] ENZYMES /2016 [facility] BLOOD BANK Antibody Scrn Negative 11/05 [facility] [place] RESULTS /2015 [facility] (11/06/15 5:04 PM) [facility] BLOOD BANK ABO/Rh A POS 11/05 [facility] [place] RESULTS /2016 [facility] CHEM PANEL eGFR 69 11/05 Result Comment: The eGFR is calculated using the CKD-EPI formula. In most young, healthy individuals the eGFR will be >90 mL/ min/1.73m2. The eGFR declines with age. An eGFR of 60-89 may be normal in [facility] [place] mL/min/1.7 /2015 some populations, particularly the elderly, for whom the CKD-EPI formula has not been extensively validated. Use of the eGFR is not recommended in the following populations: [address] Individuals with unstable creatinine concentrations, including patients and those with serious co-morbid conditions. Patients with extremes in muscle mass or diet. The data above are obtained from the National Kidney Disease Education Program (NKDEP) which additionally recommends that when the eGFR is used in patients with extremes of body mass index for purposes of drug dosing, the eGFR should be multiplied by the estimated BMI. CHEM PANEL Potassium Lvl 4.1 meq/L 3.5 - 5.1 11/[address] CHEM PANEL Sodium Lvl 138 meq/L 135 - 145 11/[address] CHEM PANEL Calcium Lvl 9.2 mg/dL 8.5 - 10.5 11/[address] CHEM PANEL Chloride Lvl 105 meq/L 95 - 109 11/[address] CHEM PANEL CO2 22 meq/L 24 - 32 11/[address] CHEM PANEL BUN 14 mg/dL 7 - 22 11/[address] CHEM PANEL Glucose Lvl 120 mg/dL 70 - 99 11/[address] CHEM PANEL Creatinine 1.08 mg/dL 0.50 - 11/05 [facility] [place] Lvl 1.40 [facility] CHEM PANEL AGAP 15.1 meq/L 10.0 - 11/05 [facility] [place] 20.0 [facility] CHEM PANEL Lactic Acid 1.1 mMol/L 0.5 - 2.2 11/05 [facility] HEMATOLOGY Monocytes 4.9 % 2.0 - 12.0 11/[address] HEMATOLOGY Eosinophils 4.6 % 0.0 - 4.0 11/[address] HEMATOLOGY Basophils 1.1 % 0.0 - 1.0 11/[address] HEMATOLOGY Segs-Bands # 7.0 K/CMM 1.5 - 8.1 11/[address] HEMATOLOGY Lymphocytes # 2.3 K/CMM 1.0 - 5.5 11/[address] HEMATOLOGY Basophils # 0.1 K/CMM 0.0 - 0.2 11/05 [facility] HEMATOLOGY Eosinophils # 0.5 K/CMM 0.0 - 0.5 11/05 [facility] HEMATOLOGY Lymphocytes 22.0 % 20.0 - 11/05 40.0 [facility] HEMATOLOGY Monocytes # 0.5 K/CMM 0.0 - 0.8 11/05 [facility] HEMATOLOGY Segs 67.4 % 45.0 - 11/05 75.0 /2015 [facility] HEMATOLOGY RBC 4.71 M/CMM 4.70 - 11/05 6.10 [facility] HEMATOLOGY Hgb 14.5 g/dL 14.0 - 11/05 18.0 [facility] HEMATOLOGY MCHC 33.6 g/dL 32.0 - 11/05 36.0 [facility] HEMATOLOGY RDW 13.4 % 11.5 - 11/05 14.5 [facility] HEMATOLOGY WBC 10.4 K/CMM 3.7 - 10.4 11/05 [facility] HEMATOLOGY MCV 91.6 fL 80.0 - 11/05 94.0 [facility] HEMATOLOGY MCH 30.7 pg 27.0 - 11/05 31.0 [facility] HEMATOLOGY Hct 43.1 % 42.0 - 11/05 54.0 [facility] HEMATOLOGY MPV 9.8 fL 7.4 - 10.4 11/05 [facility] HEMATOLOGY Platelet 281 K/CMM 133 - 450 11/05 [facility] HEMATOLOGY K-time Rapid 0.9 min 0.6 - 2.3 11/05 [facility] HEMATOLOGY G-value Rapid 14.1 K 5.0 - 11.6 11/05 [facility] [place] d/ [facility] HEMATOLOGY Angle Rapid 77 degrees 64 - 80 11/05 [facility] HEMATOLOGY Max Amplitude 74 mm 52 - 71 11/05 [facility] [place] [facility] HEMATOLOGY [place] 0.6 min 11/05 [facility] [place] [facility] HEMATOLOGY R-time Rapid 0.8 min 0.4 - 0.7 11/05 [facility] HEMATOLOGY ACT (TEG) 121 s 86 - 118 11/05 [facility] [place] [facility] HEMATOLOGY Estimated % 1.0 % 0.0 - 7.5 11/05 [facility] [place] Lysis Rapid [facility] URINE AND UA Color Yellow Yellow 11/05 [facility] *NA* Center (11/06/15 5:04 PM) URINE AND UA Blood Negative Negative 11/05 [facility] (11/06/15 5:04 PM) [facility] URINE AND UA Turbidity Clear Clear 11/05 [facility] (11/06/15 5:04 PM) [facility] URINE AND UA Spec Grav 1.010 <=1.030 11/05 [facility] URINE AND UA Bili Negative Negative 11/05 [facility] *NA* [facility] (11/06/15 5:04 PM) URINE AND UA 0.2 EU/dL 0.1 - 1.0 11/05 [facility] Urobilinogen /2015 [facility] URINE AND UA Leuk Est Negative Negative 11/05 [facility] (11/06/15 5:04 PM) [facility] URINE AND UA Nitrite Negative Negative 11/05 [facility] (11/06/15 5:04 PM) [facility] URINE AND UA Protein Negative Negative 11/05 [facility] mg/dL mg/dL /2015 [facility] URINE AND UA pH 6.0 5.0 - 8.0 11/05 [facility] URINE AND UA Ketones Negative Negative 11/05 [facility] mg/dL mg/dL [facility] URINE AND UA Glucose Negative Negative 11/05 [facility] mg/dL mg/dL /2015 [facility] URINE AND UA Sq Epi Rare /LPF Few /LPF 11/05 [facility] URINE AND UA WBC 0-2 /HPF None Seen 11/05 [facility] [place] STOOL /HPF /2015 [facility] URINE AND UA Bacteria None Seen None Seen 11/05 [facility] (11/06/15 5:04 PM) [facility] URINE AND UA RBC 0-2 /HPF 0 - 2 11/[address] Brain wo Brain wo CT HEAD WITHOUT CONTRAST 11/05 - [facility] [place] contrast CT contrast CT /2015 - [facility] DATE: 11/06/2015 at 6:54 PM. Read by: Adrian Grant MD Dictated Date/time: 11/07/15 00:00 Electronically Signed by: Adrian Grant MD 11/07/15 00:23 FINAL REPORT COMPARISON: None. HISTORY: Confusion. TECHNIQUE: Contiguous axial images of the brain were obtained without intravenous contrast administration. Sagittal and coronal reformats were also provided. DLP: 1284.00 mGy-cm. FINDINGS: A 1.7 x 0.6 x 0.9 cm parenchymal hemorrhage is noted within the left posterior frontal periventricular edward radiata. Subdural hemorrhage is noted along the left-sided the falx measuring up to 6 mm in thickness. There is no mass effect. There are no acute infarcts. The wilks-white interfaces are well defined. Low density is noted within the periventricular white matter consistent with chronic small vessel ischemic disease. There is prominence of the cortical sulci, fissures, cisterns and ventricles consisten t with cortical atrophy appropriate for the patient's stated age of 70 years. There are no acute bony abnormalities. The calvarium is intact. Atherosclerotic calcification is noted within the rios of the left vertebral and bilateral cavernous internal carotid arteries. IMPRESSION: 1. Small, 1.7 x 0.6 x 0.9 cm parenchymal hematoma within the left posterior frontal periventricular edward radiata. 2. 6 mm in thickness left parafalcine subdural hemorrhage. 3. Age related volume loss. 4. White matter hypodensity consistent with chronic small vessel ischemic disease. 5. Arterial atherosclerosis. Resident preliminary report by Dr. Lex Helm: 1.7 x 0.6 cm (AP x TV) left paraventricular parenchymal hemorrhage question of parafalcine SDH Spine-Outsi Spine-Outside EXAM: CT CERVICAL SPINE WITHOUT CONTRAST 11/05 - [facility] Consult CT /2015 - Medical CT This report was dictated by a Imaging System Administrator/Fellow. I have personally reviewed the images as Center well as the Resident's interpretation and agree with the findings. DATE: 11/06/2015 6:12 PM CDT Read by: Lex Helm MD Resident: Lex Helm MD Dictated Date/time: 11/06/15 18:17 Electronically Signed by: Yao Champion MD 11/06/15 19:28 FINAL REPORT INDICATION: Trauma, outside over read COMPARISON: None TECHNIQUE: Volumetric CT acquisition of the cervical spine without contrast. Axial, sagittal and coronal reconstructions. IV contrast: None. DLP: 1074 mGy-cm FINDINGS: The spine is imaged from the skull base to the level of T3. Alignment of spine is normal. There are multilevel degenerative changes of the cervical spine with multilevel osteophytes, multi level facet and uncovertebral hypertrophy causing neural foraminal stenosis , C3-C5 and C6, C7 disc space narrowing representing degenerative disc disease. No acute cervical spine fracture or malalignmen t. The pre and paravertebral soft tissues are within normal limits. There is no apical pneumothorax. 3 mm right lung apex calcified granuloma. IMPRESSION: 1. No acute fracture or malalignment of the cervical spine. 2. Multilevel degenerative disc disease. Vital Signs Vital Sign Value Date Comments Source Temperature Oral (F) 98.0 F 11/09/2015 [facility] Respitory Rate 18 11/09/2015 [facility] Heart Rate 68 11/09/2015 [facility] Systolic (mm Hg) 123 11/09/2015 [facility] Diastolic (mm Hg) 73 11/09/2015 [facility] Temperature Oral (F) 98.0 F 11/09/2015 [facility] Heart Rate 76 11/09/2015 [facility] Respitory Rate 18 11/09/2015 [facility] Systolic (mm Hg) 115 11/09/2015 [facility] Diastolic (mm Hg) 71 11/09/2015 [facility] Systolic (mm Hg) 127 11/09/2015 [facility] Diastolic (mm Hg) 72 11/09/2015 [facility] Temperature Oral (F) 98.6 F 11/09/2015 [facility] Heart Rate 69 11/09/2015 [facility] Respitory Rate 18 11/09/2015 [facility] Height 175.26 cm 11/06/2015 [facility] BMI Calculated 26.64 11/06/2015 [facility] Weight 81.818 11/06/2015 [facility] Encounters Location Location Encounter Encounter Reason Attending ADM DC Status Source Details Type Number For Provider Date Date [facility] [id number] Alfred 11/05 11/08 [facility] [place] Sheldon Jose C /2015 [facility] Procedures Procedure Code Date Perfomer Comments Source Amputation of [id number] [facility] Rotator cuff [id number] [facility]
[2017-11-29] MEDS ORDERED: NA CHLORIDE 0.9% 1,000 ML ONE (12:05)
[2017-11-29 12:11] LABS: Protime INR 1.18
[2017-11-29 12:12] LABS: Absolute Lymphocytes (CBC) 1.8 K/uL (0.7-4.9); Absolute Monocytes 0.4 K/uL (0.1-1.3); Absolute Neutrophil 8.8 K/uL (1.8-8.0); Eosinophils % 2.4 % (0-4.4); Hematocrit 44.3 % (39.6-49.0); Lymphocytes % 15.7 % (15.3-44.8); MCH 31.7 pg (27.0-35.0); MCV 94.9 fL (80-100); Monocytes % 3.8 % (3.3-12.3); RBC Red Blood Cell Count 4.67 M/uL (4.33-5.43)
--- NOTE | 2017-11-29 12:26 | RAD REPORT ---
EXAM DESCRIPTION: CT - Head Brain Wo Cont - 11/29/2017 12:18 pm CLINICAL HISTORY: Alteration of awareness/declining state COMPARISON: December 2016 TECHNIQUE: Computed axial tomography of the head was obtained. IV contrast was not requested. All CT scans are performed using dose optimization technique as appropriate and may include automated exposure control or mA/KV adjustment according to patient size. FINDINGS: An intracranial bleed is not seen . The ventricles are normal in caliber. No extra-axial fluid collection is noted. Mild to moderate low-density areas within periventricular, deep and subcortical white matter likely represent ischemic changes secondary to small vessel disease . Fluid has developed within the right mastoids. Visualized sinuses are clear IMPRESSION: No acute intracranial abnormality is seen. If patient's symptoms persist MRI of the bra in would be recommended. Development of fluid within the right mastoids. This is nonspecific but can be seen with acute mastoi ditis and should be correlated clinically
[2017-11-29 12:32] LABS: ALT/SGPT 101 U/L (12-78); AST/SGOT 47 U/L (15-37); Albumin 3.5 g/dL (3.4-5.0); Alkaline Phosphatase 87 U/L (45-117); BUN Blood Urea Nitrogen 20 mg/dL (7-18); Bicarbonate 30 mmol/L (21-32); Bilirubin Direct 0.2 mg/dL (0-0.2); Bilirubin Total 0.6 mg/dL (0.2-1.0); Creatine Phosphokinase 23 U/L (39-308); Glucose Level 180 mg/dL (74-106); Lipase 98 U/L (73-393); Potassium 3.6 mmol/L (3.5-5.1); Protein, Total 7.7 g/dL (6.4-8.2); Sodium Level 152 mmol/L (136-145); Troponin (Emerg Dept Use Only) < 0.02 ng/mL (0.0-0.045)
--- NOTE | 2017-11-29 13:04 | RAD REPORT ---
EXAM DESCRIPTION: Rand Single View11/29/2017 12:57 pm CLINICAL HISTORY: Cough COMPARISON: 2017 FINDINGS: An opacity overlying the left hemithorax probably represents pleural calcification second alycia to a hold hemothorax secondary to rib fractures. Lungs appear clear of acute infiltrate. The heart is normal size
[2017-11-29 14:02] LABS: Urine Bacteria NONE SEEN /HPF (NONE SEEN); Urine RBC NONE SEEN /HPF (NONE SEEN)
[2017-11-29 14:03] LABS: Urine Culture Reflex Order NOT NEEDED
--- NOTE | 2017-11-29 14:57 | ER ---
Nurse's Notes [facility] Name: Guillermo Diehl Age: 72 yrs Sex: Male : 1945 Arrival Date: 11/29/2017 Time: 10:29 Bed 15 Private MD: Kevin Falcon Diagnosis: Hyperosmolality and hypernatremia Presentation: 11/29 10:31 Presenting complaint: states: "He has been very lethargic for the last 3 or 4 hb days, has not had much appetite and just not acting like himself.". Transition of care: patient was not received from another setting of care. Onset of symptoms was November 25, 2017. 10:31 Method Of Arrival: Wheelchair hb 10:31 Acuity: JOSE 3 hb 10:33 Risk Assessment: Do you want to hurt yourself or someone else? Patient reports no hb desire to harm self or others. Care prior to arrival: None. 10:37 Initial Sepsis Screen: Does the patient meet any 2 criteria? No. Patient's initial sepsis screen is negative. Does the patient have a suspected source of infection? No. Patient's initial sepsis screen is negative. Triage Assessment: 10:37 General: Appears. hj 10:37 General: Behavior is calm, flat. Pain: Unable to use pain scale. Does not appear to hj understand pain scale. EENT: No signs and/or symptoms were reported regarding the EENT system. Neuro: Level of Consciousness is awake, alert, lethargic. Cardiovascular: Capillary refill < 3 seconds Patient's skin is warm and dry. Respiratory: Airway is patent Respiratory effort is even, unlabored, Respiratory pattern is regular, symmetrical. GI: No signs and/or symptoms were reported involving the gastrointestinal system. : No signs and/or symptoms were reported regarding the genitourinary system. Derm: No signs and/or symptoms reported regarding the dermatologic system. Musculoskeletal: Parent/caregiver report the patient having weakness in right leg and left leg. Historical: - Allergies: 10:34 Lipitor; hb 10:34 Niacin; hb 10:34 PENICILLINS; hb 10:34 Sulfa (Sulfonamide Antibiotics); hb - Home Meds: 10:34 aspirin 81 mg Oral TbEC 1 tab once daily [Active]; finasteride 5 mg Oral tab 1 tab once hb daily [Active]; glipizide 10 mg Oral tab 1 tab 2 times per day [Active]; Vitamin D Oral 5000 unit twice a day [Active]; - PMHx: 10:34 Diabetes - IDDM; CVA; Hypertension; pseudo seizures; hb - PSHx: 10:34 finger tip amputation; rectal abscess surgery; rotator cuff surgery; hb - Immunization history:: Adult Immunizations up to date. - Social history:: Smoking status: Patient/guardian denies using tobacco. - Ebola Screening: : No symptoms or risks identified at this time. Screenin:36 Abuse screen: Denies threats or abuse. Denies injuries from another. Nutritional hj screening: No deficits noted. Tuberculosis screening: No symptoms or risk factors identified. Fall Risk None identified. Assessment: 10:40 Reassessment: see triage for assessment;. hj 11:30 Reassessment: Patient and/or family updated on plan of care and expected duration. Pain hj level reassessed. family in room; pt is not in his baseline per family; A\\T\\O x2;. 12:36 Reassessment: Patient and/or family updated on plan of care and expected duration. Pain hj level reassessed. awaiting results and POC;. 13:31 Reassessment: Patient and/or family updated on plan of care and expected duration. Pain hj level reassessed. family in room;. 14:25 Reassessment: Patient and/or family updated on plan of care and expected duration. Pain hj level reassessed. awaiting POC;. 15:04 Reassessment: Patient and/or family updated on plan of care and expected duration. Pain hj level reassessed. for admit;. Vital Signs: 10:32 BP 125 / 67; Pulse 73; Resp 20; Temp 97.4; Pulse Ox 96% on R/A; Pain 0/10; hb 10:55 BP 137 / 75; Pulse 65; Resp 18; Pulse Ox 97% on R/A; hj 12:37 BP 125 / 60; Pulse 56; Resp 18; Pulse Ox 97% on R/A; hj 13:32 BP 130 / 66; Pulse 56; Resp 18; Pulse Ox 97% on R/A; hj 14:25 BP 114 / 53; Pulse 67; Resp 18; Pulse Ox 96% on R/A; hj 15:04 BP 126 / 65; Pulse 62; Resp 18; Pulse Ox 97% on R/A; hj 16:19 BP 128 / 67; Pulse 65; Resp 18; Pulse Ox 100% on R/A; ED Course: 10:29 Patient arrived in ED. mr 10:30 Kevin Falcon MD is Private Physician. mr 10:32 Triage completed. hb 10:33 Arm band placed on left wrist. hb 10:36 Arvin Avila, RN is Primary Nurse. hj 10:37 Patient has correct armband on for positive identification. Placed in gown. Bed in low hj position. Call light in reach. Side rails up X2. Adult w/ patient. 10:48 Donal Miramontes MD is Attending Physician. gs 10:54 EKG done, by copier repair technician. reviewed by Donal Miramontes MD. at1 11:30 Inserted saline lock: 22 gauge in left antecubital area, using aseptic technique. Blood hj collected. 11:30 Initial lab(s) drawn, by az, sent to lab. First set of blood cultures drawn. hj 11:45 Second set of blood cultures drawn. hj 12:18 CT Head Brain wo Cont In Process Unspecified. EDMS 12:22 Lactate Sent. mh5 12:30 Radiology exam delayed due to LAB IN PT ED ROOM TO COLLECT. sw 12:57 Chest Single View XRAY In Process Unspecified. EDMS 12:57 X-ray completed. Portable x-ray completed in exam room. Patient tolerated procedure sw well. 13:45 Urine collected: clean catch specimen, clear. mh5 13:46 Urine Microscopic Only Sent. mh5 14:55 Kevin Falcon MD is Hospitalizing Provider. gs 15:58 No provider procedures requiring assistance completed. Patient admitted, IV remains in hj place. intact. Administered Medications: 11:32 Drug: NS 0.9% 1000 ml Route: IV; Rate: 1 bolus; Site: left antecubital; hj 12:39 Follow up: IV Status: Completed infusion hj 15:30 Drug: D5-1/2 NS 1000 ml Route: IV; Rate: 125 ml/hr; Site: left antecubital; hj 15:36 Follow up: IV Status: Infusion continued upon admission hj 15:30 Drug: D50W 25 ml Route: IVP; Site: left antecubital; hj 15:37 Follow up: Response: No adverse reaction; Blood sugar is elevated Point of Care Testing: Blood Glucose: 10:58 Blood Glucose: 155 mg/dL; hj 15:37 Blood Glucose: 61 mg/dL; hj 16:19 Blood Glucose: 128 mg/dL; hj 15:37 notified with orders of D50 1/2 amp and to start D5 1/2 NS at 125 ml/hr Ranges: Outcome: 14:56 Decision to Hospitalize by Provider. gs 15:58 Admitted to Tele accompanied by nurse, accompanied by tech, family with patient, via hj stretcher, room 420, with chart, Report called to CATRINA Dunne 15:58 Condition: stable 15:58 Instructed on the need for admit, Demonstrated understanding of instructions. 16:17 Patient left the ED. Signatures: Dispatcher [employer] Shilpi Hull Amanda, survey research analyst EKG Tat1 Yolette Gaming Henry, RN RN hj Baxter, Heather, RN RN hb Martinez, Maria 5 Donal Miramontes MD MD Corrections: (The following items were deleted from the chart) 10:33 10:31 Presenting complaint: states: "He has been very lethargic for the last 3 or hb 4 days, has not had much appetite and just not acting like himself." hb 15:05 13:32 BP 130 / 66; Pulse 56bpm; Resp 18bpm; Pulse Ox 100% RA; [facility] 15:38 15:28 Blood Glucose: Blood Glucose [place]=61 mg/dL. [facility]
--- NOTE | 2017-11-29 14:57 | EDPHYS ---
Physician Documentation [facility] Name: Guillermo Diehl Age: 72 yrs Sex: Male : 1945 Arrival Date: 11/29/2017 Time: 10:29 Bed 15 Private MD: Kevin Falcon ED Physician Donal Miramontes HPI: 11/29 19:08 This 72 yrs old Male presents to ER via Wheelchair with complaints of gs Weakness, Decreased Appetite, Trouble Walking. 19:08 The patient presents to the emergency department with weakness of the entire body, gs generalized weakness. Onset: The symptoms/episode began/occurred 1 week(s) ago, and became worse and became persistent yesterday. Associated signs and symptoms: Pertinent positives: altered mental status, Pertinent negatives: dizziness. Severity of symptoms: At their worst the symptoms were moderate in the emergency department the symptoms are unchanged. Patient's baseline: Neuro: alert and fully oriented. Current symptoms: confusion, decreased level of consciousness. The patient has experienced similar episodes in the past, a few times. Historical: - Allergies: 10:34 Lipitor; hb 10:34 Niacin; hb 10:34 PENICILLINS; hb 10:34 Sulfa (Sulfonamide Antibiotics); hb - Home Meds: 10:34 aspirin 81 mg Oral TbEC 1 tab once daily [Active]; finasteride 5 mg Oral tab 1 tab once hb daily [Active]; glipizide 10 mg Oral tab 1 tab 2 times per day [Active]; Vitamin D Oral 5000 unit twice a day [Active]; - PMHx: 10:34 Diabetes - IDDM; CVA; Hypertension; pseudo seizures; hb - PSHx: 10:34 finger tip amputation; rectal abscess surgery; rotator cuff surgery; hb - Immunization history:: Adult Immunizations up to date. - Social history:: Smoking status: Patient/guardian denies using tobacco. - Ebola Screening: : No symptoms or risks identified at this time. ROS: 19:08 Unable to obtain ROS due to patient distress. gs Exam: 19:08 Head/Face: Normocephalic, atraumatic. Eyes: Pupils equal round and reactive to light, gs extra-ocular motions intact. Lids and lashes normal. Conjunctiva and sclera are non-icteric and not injected. Cornea within normal limits. Periorbital areas with no swelling, redness, or edema. ENT: Nares patent. No nasal discharge, no septal abnormalities noted. Tympanic membranes are normal and external auditory canals are clear. Oropharynx with no redness, swelling, or masses, exudates, or evidence of obstruction, uvula midline. Mucous membranes moist. Neck: Trachea midline, no thyromegaly or masses palpated, and no cervical lymphadenopathy. Supple, full range of motion without nuchal rigidity, or vertebral point tenderness. No Meningismus. Chest/axilla: Normal chest wall appearance and motion. Nontender with no deformity. No lesions are appreciated. Cardiovascular: Regular rate and rhythm with a normal S1 and S2. No gallops, murmurs, or rubs. Normal PMI, no JVD. No pulse deficits. Respiratory: Lungs have equal breath sounds bilaterally, clear to auscultation and percussion. No rales, rhonchi or wheezes noted. No increased work of breathing, no retractions or nasal flaring. Abdomen/GI: Soft, non-tender, with normal bowel sounds. No distension or tympany. No guarding or rebound. No evidence of tenderness throughout. Back: No spinal tenderness. No costovertebral tenderness. Full range of motion. Skin: Warm, dry with normal turgor. Normal color with no rashes, no lesions, and no evidence of cellulitis. MS/ Extremity: Pulses equal, no cyanosis. Neurovascular intact. Full, normal range of motion. 19:08 Constitutional: The patient appears alert, awake. 19:08 ECG was reviewed by the Attending Physician. 19:08 Neuro: Orientation: Not oriented to person, place, time, Cranial nerves: no acute changes, Motor: moves all fours, Sensation: withdraws to pain. Vital Signs: 10:32 BP 125 / 67; Pulse 73; Resp 20; Temp 97.4; Pulse Ox 96% on R/A; Pain 0/10; hb 10:55 BP 137 / 75; Pulse 65; Resp 18; Pulse Ox 97% on R/A; hj 12:37 BP 125 / 60; Pulse 56; Resp 18; Pulse Ox 97% on R/A; hj 13:32 BP 130 / 66; Pulse 56; Resp 18; Pulse Ox 97% on R/A; hj 14:25 BP 114 / 53; Pulse 67; Resp 18; Pulse Ox 96% on R/A; hj 15:04 BP 126 / 65; Pulse 62; Resp 18; Pulse Ox 97% on R/A; hj 16:19 BP 128 / 67; Pulse 65; Resp 18; Pulse Ox 100% on R/A; MDM: 11:30 Patient medically screened. 19:08 Data reviewed: vital signs, nurses notes. ED course: ddx tia, cva,sepsis,dehydration. ED course: no acute cva, no tpa as no definite cva and out of treatment window. 11/29 11:32 Order name: Basic Metabolic Panel; Complete Time: 13:12 11/29 11:32 Order name: Blood Culture Adult (2) 11/29 11:32 Order name: CBC with Diff; Complete Time: 13:12 11/29 11:32 Order name: CPK; Complete Time: 13:12 11/29 11:32 Order name: Lactate; Complete Time: 13:12 11/29 11:32 Order name: LFT's; Complete Time: 13:12 11/29 11:32 Order name: Lipase; Complete Time: 13:12 11/29 11:32 Order name: Procalcitonin; Complete Time: 13:12 11/29 11:32 Order name: Protime (+inr); Complete Time: 13:12 11/29 11:32 Order name: Troponin (emerg Dept Use Only); Complete Time: 13:12 11/29 11:32 Order name: Urine Microscopic Only; Complete Time: 14:49 11/29 11:32 Order name: AMMONIA; Complete Time: 13: 11/29 14:53 Order name: Urine Dipstick--Ancillary (enter results) 11/29 15:30 Order name: Basic Metabolic Panel EDWV 11/29 10:51 Order name: EKG; Complete Time: 10:52 11/29 11:32 Order name: Chest Single View XRAY; Complete Time: 13:12 11/29 11:32 Order name: Accucheck; Complete Time: 11:45 11/29 11:32 Order name: Cardiac monitoring; Complete Time: 11:45 11/29 11:32 Order name: EKG - Nurse/Tech; Complete Time: 11:54 11/29 11:32 Order name: IV Saline Lock - Large Bore; Complete Time: 11:54 11/29 11:32 Order name: CT Head Brain wo Cont; Complete Time: 13:12 11/29 15:30 Order name: Basic Metabolic Panel EDWV 11/29 15:30 Order name: CBC with Automated Diff EDWV 11/29 15:30 Order name: CBC with Automated Diff EDMS 11/29 16:05 Order name: Glucose, Ancillary Testing EDWV 11/29 16:05 Order name: Glucose, Ancillary Testing EDWV 11/29 16:05 Order name: Glucose, Ancillary Testing EDWV 11/29 11:32 Order name: Labs collected and sent; Complete Time: 11:54 11/29 11:32 Order name: O2 Per Protocol; Complete Time: 11:54 11/29 11:32 Order name: O2 Sat Monitoring; Complete Time: 11:54 11/29 11:32 Order name: Urine Dipstick-Ancillary (obtain specimen); Complete Time: 13:39 11/29 11:32 Order name: Finger Stick; Complete Time: 11:45 gs EC:08 Rate is 64 beats/min. Rhythm is regular. AL interval is normal. QRS interval is normal. gs T waves are Flattened. No ST changes noted. Clinical impression: NSR w/ Non-specific ST/T Changes. Interpreted by me. Administered Medications: 11:32 Drug: NS 0.9% 1000 ml Route: IV; Rate: 1 bolus; Site: left antecubital; hj 12:39 Follow up: IV Status: Completed infusion hj 15:30 Drug: D5-1/2 NS 1000 ml Route: IV; Rate: 125 ml/hr; Site: left antecubital; hj 15:36 Follow up: IV Status: Infusion continued upon admission hj 15:30 Drug: D50W 25 ml Route: IVP; Site: left antecubital; hj 15:37 Follow up: Response: No adverse reaction; Blood sugar is elevated Point of Care Testing: Blood Glucose: 10:58 Blood Glucose: 155 mg/dL; hj 15:37 Blood Glucose: 61 mg/dL; hj 16:19 Blood Glucose: 128 mg/dL; hj 15:37 MD notified with orders of D50 1/2 amp and to start D5 1/2 NS at 125 ml/hr Ranges: Critical Glucose Levels:Adult <50 mg/dl or >400 mg/dl <40 mg/dl or >180 mg/dl Disposition: 11/29/17 14:56 Hospitalization ordered by Kevin Falcon for Inpatient Admission. Preliminary diagnosis is Hyperosmolality and hypernatremia. - Bed requested for Telemetry/MedSurg (Inpatient). - Status is Inpatient Admission. hj - Condition is Stable. - Problem is new. - Symptoms are unchanged. UTI on Admission? No Signatures: Dispatcher [employer] EDMS Jelena Larson Arvin Avila RN RN Lucila Carlson RN RN Donal Miramontes MD MD gs Corrections: (The following items were deleted from the chart) 15:43 14:56 Hospitalization Ordered by Kevin Falcon MD for Inpatient Admission. Preliminary bd diagnosis is Hyperosmolality and hypernatremia. Bed requested for Telemetry/MedSurg (Inpatient). Status is Inpatient Admission. Condition is Stable. Problem is new. Symptoms are unchanged. UTI on Admission? No. 16:17 15:43 11/29/2017 14:56 Hospitalization Ordered by Kevin Falcon MD for Inpatient hj Admission. Preliminary diagnosis is Hyperosmolality and hypernatremia. Bed requested for Telemetry/MedSurg (Inpatient). Status is Inpatient Admission. Condition is Stable. Problem is new. Symptoms are unchanged. UTI on Admission? No. bd
--- NOTE | 2017-11-29 15:27 | EKG ---
Test Date: 2017-11-29 Test Time: 10:49:33 Blending Line Attendant: JENNIFER MEASUREMENT RESULTS: Intervals: Rate: 64 FL: 168 QRSD: 100 QT: 428 QTc: 441 [place]: P: 74 FL: 168 QRS: -8 T: 29 INTERPRETIVE STATEMENTS: Normal sinus rhythm Inferior infarct, age undetermined Abnormal ECG Compared to ECG 12/27/2016 21:38:14 No significant changes Electronically Signed On 11-29-17 15:25:25 CDT by Jose Luis Caicedo
[2017-11-29 15:28] LABS: Urine Blood NEGATIVE (NEG); Urine Glucose NEGATIVE (NEG); Urine Protein NEGATIVE (NEG); Urine Specific Gravity 1.015 (1.005-1.030); Urine pH 6.5 (5.0-7.0)
[2017-11-29] MEDS ORDERED: D5 0.45 NS 1,000 ML IV ONE (15:28)
[2017-11-29] MEDS ORDERED: ACETAMINOPHEN 500 MG TAB PO PRN (15:28)
[2017-11-29] MEDS ORDERED: D50W 25 GM/50 ML SYRINGE IV ONE ×2 (15:28→15:29)
[2017-11-29] MEDS: D5 0.45 NS 1,000 ML IV SCH ×2 (16:00→22:13)
[2017-11-29] MEDS ORDERED: GLUCAGON 1 MG/VIAL IM PRN (17:59)
[2017-11-29] MEDS ORDERED: D50W 25 GM/50 ML SYRINGE IV PRN (17:59)
[2017-11-29] MEDS: INSULIN -REGULAR HUMAN 50 UNIT/0.5 ML ML SQ SCH (21:00)
[2017-11-30 04:16] LABS: Absolute Lymphocytes (CBC) 2.1 K/uL (0.7-4.9); Absolute Monocytes 0.4 K/uL (0.1-1.3); Absolute Neutrophil 4.1 K/uL (1.8-8.0); Basophils % 1.1 % (0-1.3); Eosinophils % 5.3 % (0-4.4); Hematocrit 37.3 % (39.6-49.0); Lymphocytes % 29.9 % (15.3-44.8); MCH 32.6 pg (27.0-35.0); MCV 94.4 fL (80-100); MPV 10.6 fL (7.6-11.3); Monocytes % 6.1 % (3.3-12.3); RBC Red Blood Cell Count 3.95 M/uL (4.33-5.43)
[2017-11-30 04:51] LABS: BUN Blood Urea Nitrogen 14 mg/dL (7-18); Bicarbonate 28 mmol/L (21-32); Glucose Level 133 mg/dL (74-106); Potassium 3.4 mmol/L (3.5-5.1); Sodium Level 153 mmol/L (136-145)
[2017-11-30] MEDS: D5 0.45 NS 1,000 ML IV SCH ×2 (06:38→14:58)
[2017-11-30] MEDS: INSULIN -REGULAR HUMAN 50 UNIT/0.5 ML ML SQ SCH ×4 (07:30→20:31)
[2017-11-30 07:39] LABS: Urine Appearance CLEAR; Urine Bilirubin NEGATIVE (NEG); Urine Blood NEGATIVE (NEG); Urine Color YELLOW; Urine Glucose NEGATIVE (NEG); Urine Protein NEGATIVE (NEG); Urine Specific Gravity 1.015 (1.005-1.030); Urine pH 6.5 (5.0-7.0)
[2017-11-30 07:46] LABS: Urine Microscopic Reflex NO UMIC
[2017-11-30 16:37] LABS: Potassium 3.7 mmol/L (3.5-5.1)
[2017-11-30] MEDS ORDERED: SOD CHLORIDE IV SCH ×2 (17:00)
[2017-11-30] MEDS ORDERED: WATER FOR INJ STERILE IV SCH ×2 (17:00)
[2017-11-30] MEDS: NA CHLORIDE IV SCH ×2 (18:29)
[2017-11-30] MEDS: WATER FOR INJ STERILE IV SCH ×2 (18:29)
[2017-11-30] MEDS: ASPIRIN 81 MG CHEWABLE TABLET PO SCH (20:25)
--- NOTE | 2017-12-01 03:45 | HP ---
Date of Admission: 11/29/2017 Entrance Complaint: Orientation change. History Of Present Illness: History obtained mainly from the family who states that his general cond ition has deteriorated somewhat over the past few days and questioned whether or not he has had a rec ent stroke has also been considered in the present situation. He has been under the care of Home [facility] and she too felt that his condition has deteriorated somewhat as far as his responsiveness. He w as therefore brought to the emergency room. Past Medical History: The patient has a long history of multiple cardiovascular problems from stroke s, TIA, resulting in dysphagia requiring feeding access. Also had a history of an IDDM, which is und er relatively good control, hypertension, which also has been under control. 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 Social History: Nonsmoker, nondrinker. Family History: Noncontributory. Physical Examination: General: The patient is an elderly male, is slow reaction, but responsive, dysarthric, some dysphagi a. Head and Neck: Normocephalic. Pupils are equal and reactive to light and accommodation. Fundi nega tive. Trachea midline. Thyroid not palpable. ENT: Negative. Chest: Clear to P and A. Cardiovascular: PMI midclavicular line. Heart: Sounds normal. Peripheral pulses are present and equal bilaterally. Abdomen: No organomegaly. Bowel sounds hypoactive. Extremities: Moderately dehydrated. Good tone and movement bilaterally. Reflexes deferred. Cerebellar Tests: Deferred. Rectal Exam: Deferred. Impression: Altered mental status, possible dehydration, possible recent cerebrovascular accident, a n insulin-dependent diabetes mellitus by history, hypertension by history. Plan: The patient will be admitted placed on IV fluids. Cardiovascular workup will be done and depe nding on the results, further treatment may be indicated. The patient's orientation has improved somewhat, although he is not quite at baseline according to e family and the way I have seen him in the recent past. However, he is more active than when he was admitted. Actually his blood chemistries were good except for a sodium and chloride, possibly secon anthony to dehydration and/or the packet of feeding that it has been done at home. This will be monitor ed depending on electrolyte imbalance corrections. To take care of this, the patient will be mainta ined in the hospital on an insulin coverage as far as his diabetes is concerned. HR/MODL Voice ID: [id number]
[2017-12-01] MEDS: WATER FOR INJ STERILE IV SCH ×4 (04:18→14:40)
[2017-12-01] MEDS: NA CHLORIDE IV SCH ×4 (04:18→14:40)
[2017-12-01 05:11] LABS: Absolute Lymphocytes (CBC) 2.4 K/uL (0.7-4.9); Absolute Monocytes 0.5 K/uL (0.1-1.3); Absolute Neutrophil 4.1 K/uL (1.8-8.0); Eosinophils % 5.9 % (0-4.4); Hematocrit 37.3 % (39.6-49.0); Lymphocytes % 32.1 % (15.3-44.8); MCV 94.8 fL (80-100); MPV 11.3 fL (7.6-11.3); Monocytes % 6.6 % (3.3-12.3); RBC Red Blood Cell Count 3.93 M/uL (4.33-5.43)
[2017-12-01 05:15] LABS: Potassium 3.5 mmol/L (3.5-5.1)
[2017-12-01] MEDS: INSULIN -REGULAR HUMAN 50 UNIT/0.5 ML ML SQ SCH ×4 (07:30→20:10)
[2017-12-01] MEDS: FINASTERIDE 5 MG TAB PO SCH (09:25)
[2017-12-01] MEDS: ASPIRIN 81 MG CHEWABLE TABLET PO SCH (20:13)
[2017-12-02 05:17] LABS: Absolute Lymphocytes (CBC) 1.9 K/uL (0.7-4.9); Absolute Monocytes 0.5 K/uL (0.1-1.3); Absolute Neutrophil 5.3 K/uL (1.8-8.0); Basophils % 1.2 % (0-1.3); Eosinophils % 4.9 % (0-4.4); Hematocrit 40.2 % (39.6-49.0); Lymphocytes % 23.1 % (15.3-44.8); MCH 31.7 pg (27.0-35.0); MCV 93.9 fL (80-100); MPV 10.6 fL (7.6-11.3); Monocytes % 6.5 % (3.3-12.3); RBC Red Blood Cell Count 4.28 M/uL (4.33-5.43)
[2017-12-02 05:43] LABS: Potassium 3.3 mmol/L (3.5-5.1)
[2017-12-02] MEDS: INSULIN -REGULAR HUMAN 50 UNIT/0.5 ML ML SQ SCH ×4 (07:30→20:15)
[2017-12-02] MEDS: FINASTERIDE 5 MG TAB PO SCH (08:03)
[2017-12-02] MEDS: NA CHLORIDE IV SCH ×6 (10:00→18:01)
[2017-12-02] MEDS: WATER FOR INJ STERILE IV SCH ×6 (10:00→18:01)
[2017-12-02] MEDS ORDERED: KCL 20 MEQ/100 mL IVPB 20 MEQ/100 ML BAG IV SCH (18:00)
[2017-12-02 18:54] VITALS: BMI 21.1
[2017-12-02] MEDS: ASPIRIN 81 MG CHEWABLE TABLET PO SCH (20:17)
[2017-12-03] MEDS: WATER FOR INJ STERILE IV SCH ×2 (04:55)
[2017-12-03] MEDS: NA CHLORIDE IV SCH ×2 (04:55)
[2017-12-03] MEDS: INSULIN -REGULAR HUMAN 50 UNIT/0.5 ML ML SQ SCH ×2 (07:30→11:30)
[2017-12-03 08:46] LABS: Absolute Lymphocytes (CBC) 2.2 K/uL (0.7-4.9); Absolute Monocytes 0.5 K/uL (0.1-1.3); Absolute Neutrophil 4.2 K/uL (1.8-8.0); Basophils % 0.9 % (0-1.3); Eosinophils % 4.5 % (0-4.4); Hematocrit 38.8 % (39.6-49.0); MCH 31.6 pg (27.0-35.0); MCV 93.4 fL (80-100); MPV 10.9 fL (7.6-11.3); Monocytes % 7.2 % (3.3-12.3); RBC Red Blood Cell Count 4.16 M/uL (4.33-5.43)
[2017-12-03 08:55] LABS: Potassium 3.6 mmol/L (3.5-5.1)
[2017-12-03] MEDS: FINASTERIDE 5 MG TAB PO SCH (09:10)
[2017-12-03 12:05] VITALS: BP 138/68; TEMP 97.4
[2017-12-03 13:53] VITALS: O2SAT 96
--- NOTE | 2017-12-03 14:46 | PN ---
Date of Progress Note: 12/03/2017 The patient's general condition is status quo. Sodium and potassium are now within normal limits. C hloride is still elevated. I feel after discussion of the status with the hospice people this lisa fonseca that he could safely be discharged and make sure that he has adequate intake which is increased yennifer ewhat from what he was getting before he came to the hospital and then we will repeat the blood work in 48 hours. Any other differences, I told him to hold the glyburide and if necessary institute metf ormin 500 if blood sugars on 2 occasions are greater than 140. He will be discharged with obviously guarded prognosis. HR/MODL Voice ID: [id number] Report ID: [id number]
--- NOTE | 2017-12-03 16:17 | PN ---
Date of Progress Note: 12/01/2017 The patient continues to have elevated sodium. His orientation and responsiveness are basically the same. Discussion is made with the family as far as placement is concerned. They would prefer to kathi e him home if at all possible, and he will be continued on a course of normal saline and attempt to r egulate his electrolytes prior to being discharged. Dietary discussion as far as the sodium intake w ill be gone over in some detail by child custody evaluator with the patient's family, who are excellent caregivers. HR/MODL Voice ID: [id number] Report ID: [id number]
--- NOTE | 2017-12-03 16:23 | PN ---
Date of Progress Note: 12/02/2017 The patient's sodium has improved considerably. Chloride is still slightly elevated. He had some di fficulty regulating his potassium and this was added to the IV rather than giving to him p.o. as due to his dysphagia condition. Once again, the dietitian went over in some detail with the patient's fa donnell as far as the salt intake and his generalized intake. They feel a combination of the diet and a lso the hydration problem has contributed to his hyponatremia. Hospice will also be consulted as far as the placement is concerned so that the family has options available to them. As soon when the el ectrolytes are stable, he probably could be discharged tomorrow as he does have home health. HR/MODL Voice ID: [id number] Report ID: [id number]
== END 2017-12-03 14:04 | disposition home health service (06) | DRG 641 ==
LOC: ER 10:27 → ERHOLD 15:27 → 4TH 15:56
PROVIDERS: ADMIT Family Medicine; ATTEND Family Medicine
DX: E86.0 Dehydration (principal); E87.1 Hypo-osmolality and hyponatremia; I69.391 Dysphagia following cerebral infarction; I10 Essential (primary) hypertension; E11.9 Type 2 diabetes mellitus without complications; R41.82 Altered mental status, unspecified
CPT/HCPCS: 36415; 70450; 71045; 80048; 80076; 81003; 81015; 82140; 82550; 82962; 83605; 83690; 84145; 84484; 85025; 85610; 87040; 87070; 87077; 87186; 87205; 93005; 96361; 96374; 99285; J7030

== ENCOUNTER 2018-01-31 19:44 | Inpatient (IN) | payer OTHER ==
--- OUTSIDE RECORDS SUMMARY | 2018-01-31 19:47 | XMS REPORT | Clinical Summary ---
:1945 Author Organization [facility] Address [address] [place] [address] Care Team Providers Name Role Phone Roevrto Goddard Primary Care Provider Allergies Active Allergy Reactions Severity Noted Date Comments Carbamazepine 11/28/2015 Levofloxacin 11/28/2015 Atorvastatin Anaphylaxis High 11/28/2015 Niacin 11/28/2015 Penicillins 11/28/2015 Sulfa (Sulfonamide Antibiotics) 11/28/2015 Medications No known medications Active Problems Not on file Social History Tobacco Use Types Packs/Day Years Used Date Never Assessed Sex Assigned at Date Recorded Not on file Job Start Date Occupation Industry Not on file Not on file Not on file Travel History Travel Start Travel End No recent travel history available. Last Filed Vital Signs Not on file Plan of Treatment Health Maintenance Due Date Last Done Comments COLON CANCER SCREENING 1995 SHINGRIX VACCINE (1 of 2) 1995 ZOSTER VACCINE 2005 PNEUMOCOCCAL POLYSACCHARIDE VACCINE AGE 65 AND OVER 2010 PNEUMOCOCCAL-13 2010 INFLUENZA VACCINE 10/05/2017 Results Not on fileafter 01/30/2017 Insurance Payer Benefit Plan / Group Subscriber ID Type Phone Address AETNA AETNA HMO,POS,EPO, MC/EC xxxxxxxxx HMO MEDICARE MEDICARE PART A AND B xxxxxxxxxx Medicare [place], [place] Advance Directives Patient has advance care planning documents on file. For more information, please contact:[address] [address]
--- OUTSIDE RECORDS SUMMARY | 2018-01-31 19:48 | XMS REPORT | Continuity of Care Document ---
:1945 Author Organization Interface Problems Problem Status Onset Classification Date Comments Source Date Reported FALL Active [address] SDH Active [address] Center LILY LIFE Active [facility] FLIGHT Medical BILLING#4273 [place] CVA (<span Resolved Problem 11/12/2015 [facility] ID="[id number] Medical 67">Confirmed< Center /span>) DM (<span Resolved Problem 11/12/2015 [facility] ID="[id number] Medical 39">Confirmed< Center /span>) HTN (<span Resolved Problem 11/12/2015 [facility] ID="[id number] Medical 93">Confirmed< Center /span>) Seizure Resolved Problem 11/12/2015 [facility] SUBDURAL Active [facility] HEMORRHAGE DUE Medical TO Center INJURY Medications Medication Details Route Status Patient Ordering Order Source Instructions Provider Date Vimpat 100 mg, 1 tab, No Longer [facility] Route: PO, Active 016 Medical Drug form: Center TAB, Q12H, Dosing Weight 81.818, kg, Start date: 11/08/15 21:00:00 CDT, Duration: 30 day, Stop date: 12/08/15 9:00:00 CDTNotes: Same as: Vimpat Physical See Active [facility] Therapy Instructions, 016 [facility] CHANELLE AVINA Center Evaluate and Treat ___ times per week for ____ weeks, # 1 box, 0 Refill(s) Occupational See Active [facility] Therapy Instructions, 016 [facility] CHANELLE [facility] Center Evaluate and Treat ___ times per week for ____ weeks, # 1 box, 0 Refill(s) Streptococcus 0.5 mL, Route: Inactive [facility] pneumoniae IM, Drug Form: 016 [facility] serotype 1 INJ, Daily, [place] capsular Start date: antigen 11/08/15 diphtheria 9:00:00 CDT, [id number] protein Duration: 1 conjugate doses or vaccine / times, Stop Streptococcus date: 11/08/15 pneumoniae 9:00:00 serotype 14 CDTNotes: capsular Lightly roll antigen vial (DO NOT diphtheria SHAKE) before [id number] protein administration conjugate . (Same as: vaccine / Prevnar 13) Streptococcus pneumoniae serotype 18C capsular antigen d Calmoseptine 1 appl, Route: No Longer [facility] TOP, TID, Drug Active 016 Medical form: OINT, Center PRN Rash, Start date: 11/07/15 9:16:00 CDT, Duration: 30 day, Stop date: 12/07/15 9:15:00 CDTNotes: (Same as: Calmoseptine) Vitamin C 1,000 mg, 2 No Longer [facility] tab, Route: Active 016 Medical PO, Drug form: Center TAB, Daily, Dosing Weight 81.818, kg, Start date: 11/07/15 9:00:00 CDT, Duration: 30 day, Stop date: 12/06/15 9:00:00 CDTNotes: (Same as: Vitamin C) Finasteride 5 mg, 1 tab, No Longer [facility] Route: PO, Active 016 Medical Drug form: Center TAB, Daily, Dosing Weight 81.818, kg, Start date: 11/07/15 9:00:00 CDT, Duration: 30 day, Stop date: 12/06/15 9:00:00 CDTNotes: (Same as: Proscar) "Do Not Crush" Women of childbearing age should not touch or handle broken tablets Lisinopril 10 mg, 1 tab, No Longer [facility] Route: PO, Active 016 Medical Drug form: Center TAB, Daily, Dosing Weight 81.818, kg, Start date: 11/07/15 9:00:00 CDT, Duration: 30 day, Stop date: 12/06/15 9:00:00 CDTNotes: (Same as: Prinivil, Zestril) Vimpat 100 mg, 1 tab, No Longer [facility] Route: PO, Active 016 Medical Drug form: Center TAB, Q12H, Dosing Weight 81.818, kg, Start date: 11/06/15 21:00:00 CDT, Duration: 30 day, Stop date: 12/06/15 9:00:00 CDTNotes: Same as: Vimpat Saline Flush 10 ml, Route: No Longer [facility] 0.9% IVP, Drug Active 016 Medical Form: INJ, Center Dosing Weight 81.818, kg, Q12H, Start date: 11/06/15 21:00:00 CDT, Duration: 30 day, Stop date: 12/06/15 9:00:00 CDTNotes: (Same as: BD Posiflush) Docusate 100 mg, 1 cap, No Longer [facility] Route: PO, Active Medical Drug form: Center CAP, Q12H, Dosing Weight 81.818, kg, Start date: 11/06/15 21:00:00 CDT, Duration: 30 day, Stop date: 12/06/15 9:00:00 CDTNotes: (Same as: Colace) (Do Not Crush) sennosides, FDC 8.6 mg, 1 tab, No Longer [facility] Route: PO, Active Medical Drug Form: Center TAB, Dosing Weight 81.818, kg, Q12H, Start date: 11/06/15 21:00:00 CDT, Duration: 30 day, Stop date: 12/06/15 9:00:00 CDTNotes: (Same as: Senokot) Levetiracetam 500 mg, 1 tab, No Longer [facility] Route: PO, Active Medical Drug form: Center TAB, Q12H, Dosing Weight 81.818, kg, Start date: 11/06/15 21:00:00 CDT, Duration: 7 day, Stop date: 11/13/15 9:00:00 CDTNotes: (Same as:Keppra) lisinopril 10 10 mg=1 tab, Active [facility] mg oral tablet PO, Daily, 0 016 Medical Refill(s) Center 24 HR Metformin 1,000 mg=1 Active [facility] hydrochloride tab, PO, 016 Medical 1000 MG [...] tablet PO, Daily, 0 016 Medical Refill(s) [place] Glipizide 10 MG 10 mg=1 tab, Active [place] Oral Tablet PO, BID, 0 016 Medical Refill(s) Center lacosamide 100 100 mg=1 tab, Active [place] MG Oral Tablet PO, BID, 0 016 Medical [Vimpat] Refill(s) [place] Hydralazine 20 mg, 1 mL, No Longer [facility] Route: IVP, Active [facility] Drug form: Center INJ, Q4H, Dosing Weight 81.818, kg, PRN Hypertension, Start date: 11/06/15 19:57:00 CDT, Duration: 30 day, Stop date: 12/06/15 19:56:00 CDTNotes: (Same as: Apresoline) Push over 5 minutes Neutra-Phos 2 pkt, Route: No Longer [facility] PO, Drug Form: Active [facility] PDR/REC, Center Dosing Weight 81.818, kg, PRN, PRN Abnormal Lab Result, FOR ICU USE ONLY, Start date: 11/06/15 19:42:00 CDT, Duration: 30 day, Stop date: 12/06/15 19:41:00 CDTNotes: (Same as: Neutra-Phos) Each 1.25 gm pkt has 250mg phosphorous. Mix w/2.5oz water and stir. potassium 45 mmol, 15 No Longer [facility] phosphate + mL, Route: Active 016 Medical sodium chloride IVPB, PRN, Center 0.9% INJ 250 mL Dosing Weight 81.818, kg, PRN Abnormal Lab Result, Start date: 11/06/15 19:42:00 CDT, Duration: 30 day, Stop date: 12/06/15 19:41:00 CDT, FOR ICU USE ONLYNotes: (Same as: K Phosphate.) 1 mMol phoshate has 1.47 mEq potassium Infuse over 4 hours sodium 45 mmol, 15 No Longer [facility] phosphate + mL, Route: Active 016 Medical sodium chloride IVPB, PRN, Center 0.9% INJ 250 mL Dosing Weight 81.818, kg, PRN Abnormal Lab Result, Start date: 11/06/15 19:42:00 CDT, Duration: 30 day, Stop date: 12/06/15 19:41:00 CDT, FOR ICU USE ONLY potassium 20 mEq, 100 No Longer [facility] chloride mL, Route: Active 016 Medical IVPB, Drug Center form: INJ, PRN, Dosing Weight 81.818, kg, PRN Abnormal Lab Result, Via central line, Start date: 11/06/15 19:42:00 CDT, Duration: 30 day, Stop date: 12/06/15 19:41:00 CDT, FOR ICU USE ONLYNotes: (Same as: KCL) Infuse no faster than 10 mEq/hr if given peripherally. Calcium 1,000 mg, 2 No Longer [facility] Carbonate 500 tab, Route: Active Medical MG Chewable PO, Drug form: Center Tablet CHEWTAB, PRN, Dosing Weight 81.818, kg, PRN Abnormal Lab Result, FOR ICU USE ONLY, Start date: 11/06/15 19:42:00 CDT, Duration: 30 day, Stop date: 12/06/15 19:41:00 CDTNotes: (Same As: Tumaden) Calcium Carbonate 500 eb=584 mg elemental calcium Dose= mg calcium carbonate ( mg elemental calcium) Calcium 1 gm, 10 mL, No Longer [facility] Gluconate Route: IVPB, Active 016 Medical PRN, [...] CDTNotes: (Same as: Mag-Ox 400) Magnesium oxide [id number] elemental magnesium Dose=____mg magnesium oxide (___mg elemental [...] CDT Regular 3 unit, 0.03 No Longer [facility] Insulin, Human mL, Route: Active 016 Medical [...] Saline Flush 10 ml, Route: No Longer [facility] 0.9% IVP, Drug Active 016 Medical Form: INJ, Center Dosing Weight 81.818, kg, PRN, PRN Line Flush, Start date: 11/06/15 18:05:00 CDT, Duration: 30 day, Stop date: 12/06/15 18:04:00 CDTNotes: (Same as: BD Posiflush) Bisacodyl 10 mg, 1 supp, No Longer [facility] Route: [place], Active 016 Medical Drug form: [place] SUPP, Daily, Dosing Weight 81.818, kg, PRN Constipation, Start date: 11/06/15 18:05:00 CDT, Duration: 30 day, Stop date: 12/06/15 18:04:00 CDTNotes: (Same As: Dulcolax, Bisco-Lax) Ondansetron 4 mg, 2 mL, No Longer [facility] Route: IVP, Active 016 Medical Drug form: [place] INJ, Q8H, Dosing Weight 81.818, kg, PRN Nausea & Vomiting, Start date: 11/06/15 18:05:00 CDT, Duration: 30 day, Stop date: 12/06/15 18:04:00 CDTNotes: (Same as: Zofran) MEDICATION WASTE Product Size: 4 mg Product Wasted: 0 mg Sodium Chloride 1,000 mL, No Longer [facility] 0.154 MEQ/ML Rate: 75 Active 016 Medical Injectable ml/hr, Infuse Center Solution over: 13.3 hr, Route: IV, Dosing Weight 81.818 kg, Total Volume: 1,000, Start date: 11/06/15 18:05:00 CDT, Duration: 30 day, Stop date: 12/06/15 18:04:00 CDT Levetiracetam 1,000 mg, Inactive [facility] Route: IVPB, Medical ONCE, Dosing Center Weight 81.818, kg, Start date: 11/06/15 18:05:00 CDT, Stop date: 11/06/15 18:05:00 CDTNotes: Same as Keppra Mix with 100 mL NS, LR or D5W MEDICATION WASTE Product Size: 500 mg Product Wasted: 0 mg Acetaminophen 1 tab, Route: Inactive [facility] 325 MG / PO, Drug Form: Medical Hydrocodone TAB, Dosing Center Bitartrate 10 Weight 81.818, MG Oral Tablet kg, Q4H, PRN Pain Score 4-6, Start date: 11/06/15 18:05:00 CDT, Duration: 30 day, Stop date: 12/06/15 18:04:00 CDTNotes: Do not exceed 4gm/day of acetaminophen. (Same as: [place] 325/10) Acetaminophen 1 tab, Route: Inactive [facility] 325 MG / PO, Drug Form: Medical Hydrocodone TAB, Dosing Center Bitartrate 5 MG Weight 81.818, Oral Tablet kg, Q4H, PRN Pain Score 1-3, Start date: 11/06/15 18:05:00 CDT, Duration: 30 day, Stop date: 12/06/15 18:04:00 CDTNotes: (Same as: [place] 325/5) Do not exceed 4gm/day of acetaminophen. Saline Flush 10 mL, Route: No Longer [facility] 0.9% IVP, Drug Active 016 Medical Form: INJ, Center Dosing Weight 81.818, kg, PRN, PRN Line Flush, Start date: 11/06/15 16:54:00 CDT, Duration: 30 day, Stop date: 12/06/15 16:53:00 CDTNotes: (Same as: BD Posiflush) Metformin PO, 0 Inactive [facility] Refill(s) [address] [place] [address] Lisinopril PO, Daily, 0 Inactive [facility] Refill(s) [address] [place] [address] 3 ML SUB-Q, Daily, Active [facility] liraglutide 6 PRN Abnormal [address] [place] [address] MG/ML Prefilled Lab Result, [place] Syringe Given PRN is [Victoza] glucose >250, 0 Refill(s) Xarelto PO, 0 Inactive [facility] Refill(s) [address] [place] [address] Vitamin C 0 Refill(s) Inactive [address] Finasteride PO, Daily, 0 Inactive [facility] Refill(s) [address] [place] [address] Glipizide PO, Daily, [facility] [address] [place] [address] Vimpat BID, 0 [facility] [address] [place] [address] Allergies, Adverse Reactions, Alerts Substance Category Reaction Severity Reaction Status Date Comments Source type Reported Levaquin Assertion Drug Active [facility] Lipitor Assertion Drug Active [facility] niacin Assertion Drug Active [facility] penicillins Assertion Drug Active [facility] sulfa drugs Assertion Drug Active [facility] Immunizations Immunization Date Given Site Status Last Updated Comments Source pneumococcal 11/08/2015 Not Given [facility] 13valent vaccine [facility] Results Order Name Results Value Reference Date Interpretation Comments Source Range CHEM PANEL Magnesium Lvl 2.2 mg/dL 1.8 - 2.4 11/[address] CHEM PANEL Phosphorus 2.6 mg/dL 2.5 - 4.5 11/[address] ELECTROLYTE AGAP 15.2 meq/L 10.0 - 11/07 [facility] S 20.0 [facility] ELECTROLYTE Sodium Lvl 140 meq/L 135 - 145 11/07 [facility]2015 [facility] ELECTROLYTE Potassium Lvl 4.2 meq/L 3.5 - 5.1 11/07 [facility] ELECTROLYTE Chloride Lvl 108 meq/L 95 - 109 11/07 [facility] ELECTROLYTE CO2 21 meq/L 24 - 32 11/07 [facility] 2015 [facility] ELECTROLYTE Glucose Lvl 171 mg/dL 70 - 99 11/07 [facility] ELECTROLYTE BUN 13 mg/dL 7 - 22 11/07 [facility] 2015 [facility] ELECTROLYTE Creatinine 1.03 mg/dL 0.50 - 11/07 [facility] Lvl 1.40 [facility] ELECTROLYTE eGFR 73 11/07 Result Comment: The eGFR is calculated using the CKD-EPI formula. In most young, healthy individuals the eGFR will be >90 mL/ min/1.73m2. The eGFR declines with age. An eGFR of 60-89 may be normal in [facility] mL/min/1.7 some populations, particularly the elderly, for whom the CKD-EPI formula has not been extensively validated. Use of the eGFR is not recommended in the following populations: [address] Individuals with unstable creatinine concentrations, including [...] Lvl 9.2 mg/dL 8.5 - 10.5 11/07 [facility] HEMATOLOGY Lymphocytes 29.2 % 20.0 - 09 [facility] 40.0 [facility] HEMATOLOGY Segs 57.6 % 45.0 - 11/07 [facility] 75.0 [facility] HEMATOLOGY Eosinophils 5.6 % 0.0 - 4.0 11/07 2015 [facility] HEMATOLOGY Monocytes 6.7 % 2.0 - 12.0 11/[address] HEMATOLOGY Basophils # 0.1 K/CMM 0.0 - 0.2 11/07 [facility]2015 [facility] HEMATOLOGY Eosinophils # 0.5 K/CMM 0.0 - 0.5 11/[address] HEMATOLOGY Lymphocytes # 2.4 K/CMM 1.0 - 5.5 11/[address] HEMATOLOGY Segs-Bands # 4.8 K/CMM 1.5 - 8.1 11/07 [facility] HEMATOLOGY Basophils 0.9 % 0.0 - 1.0 11/07 [facility] HEMATOLOGY Monocytes # 0.6 K/CMM 0.0 - 0.8 11/07 [facility] HEMATOLOGY Hct 42.5 % 42.0 - 11/07 54.0 [facility] HEMATOLOGY Hgb 14.5 g/dL 14.0 - 11/07 18.0 [facility] HEMATOLOGY RBC 4.63 M/CMM 4.70 - 11/07 [place] 6.10 /2015 [facility] HEMATOLOGY WBC 8.4 K/CMM 3.7 - 10.4 11/07 [facility] HEMATOLOGY MPV 9.8 fL 7.4 - 10.4 11/07 [facility] HEMATOLOGY MCV 91.9 fL 80.0 - 11/07 [facility] 94.0 [facility] HEMATOLOGY Platelet 248 K/CMM 133 - 450 11/07 [facility] HEMATOLOGY RDW 13.7 % 11.5 - 11/07 14.5 [facility] HEMATOLOGY MCHC 34.2 g/dL 32.0 - 11/07 [place] 36.0 [facility] HEMATOLOGY MCH 31.4 pg 27.0 - 11/07 [place] 31.0 [facility] PARATHYROID Ca Norm WB 1.07 1.05 - 11/07 [facility] PROFILE mMol/L 1. [facility] PARATHYROID Ca Ion WB 1.06 1.05 - 11/07 [facility] PROFILE mMol/L 1. [facility] BACTERIAL - MRSA by PCR Negative 11/06 [facility] SEROLOGY [facility] (11/07/15 9:00 AM) [place] CARDIAC Troponin-T null 0.000 - 11/06 [facility] ENZYMES 0.100 /2015 [facility] CARDIAC Troponin-I null 0.00 - 11/06 [facility] ENZYMES 0.40 /2015 [facility] CARDIAC Total CK 45 unit/L - 11/06 [facility] ENZYMES /2015 [facility] CARDIAC Total CK 45 unit/L - 11/06 [facility] ENZYMES /2015 [facility] CARDIAC Troponin-I null 0.00 - 11/06 [facility] ENZYMES 0.40 /2015 [facility] CHEM PANEL Globulin 3.7 g/dL 2.7 - 4.2 11/[address] CHEM PANEL A/G Ratio 0.9 0.7 - 1.6 11/[address] CHEM PANEL Total Protein 7.2 g/dL 6.4 - 8.4 11/[address] CHEM PANEL Albumin Lvl 3.5 g/dL 3.5 - 5.0 11/[address] CHEM PANEL Alk Phos 67 unit/L 39 - 136 11/[address] CHEM PANEL ALT 24 unit/L 0 - 65 11/[address] CHEM PANEL AST 10 unit/L 0 - 37 11/[address] CHEM PANEL Bili Indirect 0.4 mg/dL 0.0 - 1.0 11/[address] CHEM PANEL Bili Total 0.5 mg/dL 0.2 - 1.3 11/[address] CHEM PANEL Bili Direct 0.1 mg/dL 0.0 - 0.3 11/[address] CHEM PANEL Phosphorus 2.1 mg/dL 2.5 - 4.5 11/[address] CHEM PANEL Magnesium Lvl 1.8 mg/dL 1.8 - 2.4 11/[address] CHEM PANEL eGFR 63 11/06 Result Comment: The eGFR is calculated using the CKD-EPI formula. In most young, healthy individuals the eGFR will be >90 mL/ min/1.73m2. The eGFR declines with age. An eGFR of 60-89 may be normal in [facility] mL/min/1.7 some populations, particularly the elderly, for whom the CKD-EPI formula has not been extensively validated. Use of the eGFR is not recommended in the following populations: [address] Individuals with unstable creatinine concentrations, including [...] Lvl 8.9 mg/dL 8.5 - 10.5 11/[address] CHEM PANEL Creatinine 1.17 mg/dL 0.50 - 09 [facility] Lvl 1.40 /2015 [facility] CHEM PANEL BUN 13 mg/dL 7 - 22 11/06 [facility]2015 [facility] CHEM PANEL Sodium Lvl 142 meq/L 135 - 145 11/[address] CHEM PANEL Potassium Lvl 3.9 meq/L 3.5 - 5.1 11/[address] CHEM PANEL Chloride Lvl 107 meq/L 95 - 109 11/06 [facility] CHEM PANEL AGAP 15.9 meq/L 10.0 - 11/06 [facility] 20.0 [facility] CHEM PANEL CO2 23 meq/L 24 - 32 11/[address] CHEM PANEL Glucose Lvl 205 mg/dL 70 - 99 11/[address] HEMATOLOGY Monocytes # 0.7 K/CMM 0.0 - 0.8 11/[address] HEMATOLOGY Basophils # 0.1 K/CMM 0.0 - 0.2 11/[address] HEMATOLOGY Lymphocytes # 2.5 K/CMM 1.0 - 5.5 11/[address] HEMATOLOGY Eosinophils # 0.4 K/CMM 0.0 - 0.5 11/06 [facility] [address] [place] [address] HEMATOLOGY Segs 67.4 % 45.0 - 11/06 [facility] 75.0 /2015 [facility] HEMATOLOGY Monocytes 6.3 % 2.0 - 12.0 11/[address] HEMATOLOGY Lymphocytes 21.4 % 20.0 - 11/06 [facility] 40.0 [facility] HEMATOLOGY Segs-Bands # 7.8 K/CMM 1.5 - 8.1 11/[address] HEMATOLOGY Eosinophils 3.8 % 0.0 - 4.0 11/[address] HEMATOLOGY Basophils 1.1 % 0.0 - 1.0 11/[address] HEMATOLOGY TEG Interp Thrombelas 11/06 [facility] [place] [facility] show shortened value of R. 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.CPT :[id number] HEMATOLOGY Ly30 3.9 % 0.0 - 7.5 11/06 [facility] [address] [place] [address] HEMATOLOGY TEG Data See Note 11/06 [facility] [place] /[address] [place], [place] [address]11/07/15 12:43 AM) [place] HEMATOLOGY Coag Index 2.2 -3.0-3.0 - 11/06 [place] 3.0 [facility] HEMATOLOGY G-value 11.0 K 4.5 - 11.0 11/06 [facility] d/sc /2015 [facility] HEMATOLOGY R-time 4.8 min 5.0 - 10.0 11/06 [facility] HEMATOLOGY Angle 69.2 53.0 - 11/06 [facility] degrees 72.0 [facility] HEMATOLOGY Max Amp 68.8 mm 50.0 - 11/06 [place] 70.0 [facility] HEMATOLOGY K-time 1.5 min 1.0 - 3.0 11/06 [facility] HEMATOLOGY INR 1.16 0.85 - 11/06 [place] 1.17 [facility] HEMATOLOGY PT 15.1 s 12.0 - 11/06 [place] 14.7 /2015 [facility] HEMATOLOGY PTT 32.9 s 22.9 - 11/06 [place] 35.8 [facility] HEMATOLOGY MCV 91.2 fL 80.0 - 11/06 [place] 94.0 [facility] HEMATOLOGY Hct 42.1 % 42.0 - 11/06 [place] 54.0 /2015 [facility] HEMATOLOGY MCHC 33.1 g/dL 32.0 - 09 [place] 36.0 [facility] HEMATOLOGY Platelet 251 K/CMM 133 - 450 11/06 [facility] HEMATOLOGY RDW 13.5 % 11.5 - 11/06 [place] 14.5 [facility] HEMATOLOGY MPV 10.0 fL 7.4 - 10.4 11/06 [facility] HEMATOLOGY RBC 4.62 M/CMM 4.70 - 11/06 [place] 6.10 [facility] HEMATOLOGY Hgb 13.9 g/dL 14.0 - 11/06 [place] 18.0 [facility] HEMATOLOGY WBC 11.6 K/CMM 3.7 - 10.4 11/06 [facility] HEMATOLOGY MCH 30.2 pg 27.0 - 11/06 [place] 31.0 [facility] PARATHYROID Ca Ion WB 1.17 1.05 - 11/06 [facility] PROFILE mMol/L 1.25 [facility] PARATHYROID Ca Norm WB 1.17 1.05 - 11/06 [facility] PROFILE mMol/L 1.25 [facility] Chest 1view Chest 1view EXAM: XR CHEST 1 VIEW 11/06 - [facility] DX DX /2015 - Medical This report was dictated by a Electric Organ Assembler [employer] Checker/Fellow. I have personally reviewed the images as [...] warranted. CARDIAC Troponin-T null 0.000 - 11/05 [facility] ENZYMES 0.100 /2015 [facility] CARDIAC Troponin-I null 0.00 - 11/05 [facility] ENZYMES 0.40 /2016 [facility] CARDIAC Total CK 43 unit/L 12 - 191 11/05 [facility] ENZYMES /2016 [facility] BLOOD BANK Antibody Scrn Negative 11/05 [facility] RESULTS /2015 [facility] (11/06/15 5:04 PM) [place] BLOOD BANK ABO/Rh A POS 11/05 [facility] RESULTS /2016 [facility] CHEM PANEL eGFR 69 11/05 Result Comment: The eGFR is calculated using the CKD-EPI formula. In most young, healthy individuals the eGFR will be >90 mL/ min/1.73m2. The eGFR declines with age. An eGFR of 60-89 may be normal in [facility] mL/min/1.7 /2015 some populations, particularly the elderly, for whom the CKD-EPI formula has not been extensively validated. Use of the eGFR is not recommended in the following populations: [address] Individuals with unstable creatinine concentrations, including [...] Lvl 4.1 meq/L 3.5 - 5.1 11/[address] CHEM PANEL Sodium Lvl 138 meq/L 135 - 145 11/[address] CHEM PANEL Calcium Lvl 9.2 mg/dL 8.5 - 10.5 11/[address] CHEM PANEL Chloride Lvl 105 meq/L 95 - 109 11/[address] CHEM PANEL CO2 22 meq/L 24 - [address] CHEM PANEL BUN 14 mg/dL 7 - 22 11/[address] CHEM PANEL Glucose Lvl 120 mg/dL 70 - 99 11/[address] CHEM PANEL Creatinine 1.08 mg/dL 0.50 - 11/05 [facility] Lvl 1.40 [facility] CHEM PANEL AGAP 15.1 meq/L 10.0 - 11/05 [facility] 20.0 [facility] CHEM PANEL Lactic Acid 1.1 mMol/L 0.5 - 2.2 11/05 [facility] HEMATOLOGY Monocytes 4.9 % 2.0 - 12.0 11/[address] HEMATOLOGY Eosinophils 4.6 % 0.0 - 4.0 11/[address] HEMATOLOGY Basophils 1.1 % 0.0 - 1.0 11/[address] HEMATOLOGY Segs-Bands # 7.0 K/CMM 1.5 - 8.1 11/[address] HEMATOLOGY Lymphocytes # 2.3 K/CMM 1.0 - 5.5 11/[address] HEMATOLOGY Basophils # 0.1 K/CMM 0.0 - 0.2 11/05 [facility] HEMATOLOGY Eosinophils # 0.5 K/CMM 0.0 - 0.5 11/05 [facility] HEMATOLOGY Lymphocytes 22.0 % 20.0 - 11/05 40.0 [facility] HEMATOLOGY Monocytes # 0.5 K/CMM 0.0 - 0.8 11/05 [facility] HEMATOLOGY Segs 67.4 % 45.0 - 11/05 75.0 /2015 [facility] HEMATOLOGY RBC 4.71 M/CMM 4.70 - 11/05 6.10 [facility] HEMATOLOGY Hgb 14.5 g/dL 14.0 - 11/05 18.0 [facility] HEMATOLOGY MCHC 33.6 g/dL 32.0 - 11/05 36.0 [facility] HEMATOLOGY RDW 13.4 % 11.5 - 11/05 14.5 [facility] HEMATOLOGY WBC 10.4 K/CMM 3.7 - 10.4 11/05 [facility] HEMATOLOGY MCV 91.6 fL 80.0 - 11/05 94.0 [facility] HEMATOLOGY MCH 30.7 pg 27.0 - 11/05 31.0 [facility] HEMATOLOGY Hct 43.1 % 42.0 - 11/05 54.0 [facility] HEMATOLOGY MPV 9.8 fL 7.4 - 10.4 11/05 [facility] HEMATOLOGY Platelet 281 K/CMM 133 - 450 11/05 [facility] HEMATOLOGY K-time Rapid 0.9 min 0.6 - 2.3 11/05 [facility] HEMATOLOGY G-value Rapid 14.1 K 5.0 - 11.6 11/05 [facility] d/ [facility] HEMATOLOGY Angle Rapid 77 degrees 64 - 80 11/05 [facility] HEMATOLOGY Max Amplitude 74 mm 52 - 71 11/05 [facility] HEMATOLOGY Split Point 0.6 min 11/05 [facility] HEMATOLOGY R-time Rapid 0.8 min 0.4 - 0.7 11/05 [facility] HEMATOLOGY ACT (TEG) 121 s 86 - 118 11/05 [facility] HEMATOLOGY Estimated % 1.0 % 0.0 - 7.5 11/05 [facility] Lysis Rapid [facility] TOXICOLOGY Ethanol Lvl null 11/05 [facility] TOXICOLOGY Etoh (%) null 11/05 [facility] URINE AND UA Color Yellow Yellow 11/05 [facility] *NA* [place] (11/06/15 5:04 PM) URINE AND UA Blood Negative Negative 11/05 [facility] (11/06/15 5:04 PM) [place] URINE AND UA Turbidity Clear Clear 11/05 [facility] (11/06/15 5:04 PM) [place] URINE AND UA Spec Grav 1.010 <=1.030 11/05 [facility] URINE AND UA Bili Negative Negative 11/05 [facility] *NA* [place] (11/06/15 5:04 PM) URINE AND UA 0.2 EU/dL 0.1 - 1.0 11/05 [facility] Urobilinogen /2015 [facility] URINE AND UA Leuk Est Negative Negative 11/05 [facility] (11/06/15 5:04 PM) [place] URINE AND UA Nitrite Negative Negative 11/05 [facility] (11/06/15 5:04 PM) [place] URINE AND UA Protein Negative Negative 11/05 [facility] mg/dL mg/dL /2015 [facility] URINE AND UA pH 6.0 5.0 - 8.0 11/[address] URINE AND UA Ketones Negative Negative 11/05 [facility] mg/dL mg/dL [facility] URINE AND UA Glucose Negative Negative 11/05 [facility] mg/dL mg/dL /2015 [facility] URINE AND UA Sq Epi Rare /LPF Few /LPF 11/05 [facility] [address] [place] [address] URINE AND UA WBC 0-2 /HPF None Seen 11/05 [facility] STOOL /HPF /2015 [facility] URINE AND UA Bacteria None Seen None Seen 11/05 [facility] (11/06/15 5:04 PM) [place] URINE AND UA RBC 0-2 /HPF 0 - 2 11/[address] Brain wo Brain wo CT HEAD WITHOUT CONTRAST 11/05 - [facility] contrast CT contrast CT /2015 - [facility] DATE: 11/06/2015 at 6:54 PM. Read [...] CT CERVICAL SPINE WITHOUT CONTRAST 11/05 - [facility] de Consult Consult CT /2016 - Medical CT This report was dictated by a Electric Organ Assembler And Checker/Fellow. I have personally reviewed the images as [...] Source Temperature Oral (F) 98.0 F 11/09/2015 [facility] Respitory Rate 18 11/09/2015 [facility] Heart Rate 68 11/09/2015 [facility] Systolic (mm Hg) 123 11/09/2015 [facility] Diastolic (mm Hg) 73 11/09/2015 [facility] Temperature Oral (F) 98.0 F 11/09/2015 [facility] Heart Rate 76 11/09/2015 [facility] Respitory Rate 18 11/09/2015 [facility] Systolic (mm Hg) 115 11/09/2015 [facility] Diastolic (mm Hg) 71 11/09/2015 [facility] Systolic (mm Hg) 127 11/09/2015 [facility] Diastolic (mm Hg) 72 11/09/2015 [facility] Temperature Oral (F) 98.6 F 11/09/2015 [facility] Heart Rate 69 11/09/2015 [facility] Respitory Rate 18 11/09/2015 [facility] Height 175.26 cm 11/06/2015 [facility] BMI Calculated 26.64 11/06/2015 [facility] Weight 81.818 11/06/2015 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
[2018-01-31 21:06] LABS: Absolute Lymphocytes (CBC) 1.2 K/uL (0.7-4.9); Absolute Monocytes 0.7 K/uL (0.1-1.3); Absolute Neutrophil 10.3 K/uL (1.8-8.0); Basophils % 0.8 % (0-1.3); Eosinophils % 0.4 % (0-4.4); Hematocrit 49.7 % (39.6-49.0); Lymphocytes % 10.1 % (15.3-44.8); MCH 31.6 pg (27.0-35.0); MCV 94.7 fL (80-100); MPV 9.9 fL (7.6-11.3); Monocytes % 5.6 % (3.3-12.3); RBC Red Blood Cell Count 5.25 M/uL (4.33-5.43)
[2018-01-31] MEDS ORDERED: NA CHLORIDE 0.9% 1,000 ML ONE (21:11)
[2018-01-31 21:14] LABS: Protime INR 1.26
[2018-01-31 21:36] LABS: ALT/SGPT 30 U/L (12-78); AST/SGOT 26 U/L (15-37); Alkaline Phosphatase 107 U/L (45-117); BUN Blood Urea Nitrogen 24 mg/dL (7-18); Bicarbonate 26 mmol/L (21-32); Bilirubin Direct 0.1 mg/dL (0-0.2); Bilirubin Total 0.3 mg/dL (0.2-1.0); Creatine Phosphokinase 283 U/L (39-308); Glucose Level 180 mg/dL (74-106); Lipase 96 U/L (73-393); Protein, Total 9.1 g/dL (6.4-8.2); Sodium Level 146 mmol/L (136-145); Troponin (Emerg Dept Use Only) < 0.02 ng/mL (0.0-0.045)
[2018-01-31 22:53] LABS: Urine Blood NEGATIVE (NEG); Urine Glucose NEGATIVE (NEG); Urine Protein NEGATIVE (NEG); Urine Specific Gravity 1.015 (1.005-1.030); Urine pH 6.5 (5.0-7.0)
[2018-01-31 23:07] LABS: Urine Bacteria <20 /HPF (NONE SEEN); Urine Culture Reflex Order NOT NEEDED; Urine RBC <5 /HPF (NONE SEEN)
[2018-02-01] MEDS ORDERED: CEFEPIME 1 GM/100 ML BAG IV ONE (01:38)
--- NOTE | 2018-02-01 01:40 | ER ---
Nurse's Notes [facility] Name: Guillermo Diehl Age: 72 yrs Sex: Male : 1945 Arrival Date: 01/31/2018 Time: 19:50 Bed 15 Private MD: Kevin Falcon Diagnosis: Sepsis, unspecified organism Presentation: 01/31 19:55 Presenting complaint: states: "He's real tired, no energy, he's been like this the aj1 past couple of days. Home health came and they said if he gets worse to take him in and he's worse. He usually walks with assistance but today he hasn't been able to do that. Today when they are offering him liquids he won't suck it out of the straw so they've had to give it to him with a spoon. He usually talk to them with garbled speech, but today he isn't talking to them at all. Patient's states he was last at his normal 2 days ago. States that he is also being treated for a pressure ulcer on his tailbone. Transition of care: patient was not received from another setting of care. Onset of symptoms was January 29, 2018. Risk Assessment: Do you want to hurt yourself or someone else? Patient reports no desire to harm self or others. Initial Sepsis Screen: Does the patient meet any 2 criteria? No. Patient's initial sepsis screen is negative. Does the patient have a suspected source of infection? No. Patient's initial sepsis screen is negative. Care prior to arrival: None. 19:55 Method Of Arrival: Wheelchair aj1 19:55 Acuity: JOSE 2 aj1 Triage Assessment: 19:58 General: Appears in no apparent distress. comfortable, Behavior is listless. Pain: aj1 Unable to use pain scale. Historical: - Allergies: 19:58 Lipitor; aj1 19:58 Niacin; aj1 19:58 PENICILLINS; aj1 19:58 Sulfa (Sulfonamide Antibiotics); aj1 - Home Meds: 19:58 aspirin 81 mg Oral TbEC 1 tab once daily [Active]; finasteride 5 mg Oral tab 1 tab once aj1 daily [Active]; glipizide 10 mg Oral tab 1 tab 2 times per day [Active]; Vitamin D Oral 5000 unit twice a day [Active]; - PMHx: 19:58 CVA; Diabetes - IDDM; Hypertension; pseudo seizures; aj1 - Immunization history:: Flu vaccine is not up to date. - Social history:: Smoking status: Patient/guardian denies using tobacco. - Ebola Screening: : Patient denies travel to an Ebola-affected area in the 21 days before illness onset. Screenin:19 Abuse screen: Denies threats or abuse. Nutritional screening: No deficits noted. jb4 Tuberculosis screening: No symptoms or risk factors identified. Fall Risk None identified. Assessment: 20:17 General: Appears in no apparent distress. comfortable, Behavior is calm. Pain: Denies jb4 pain. Neuro: Level of Consciousness is awake, alert, Oriented to Pt is unable to respond to questoins.. Cardiovascular: Heart tones S1 S2 present Patient's skin is warm and dry. Respiratory: Airway is patent Respiratory effort is even, unlabored, Respiratory pattern is regular, symmetrical. GI: Abdomen is flat, non-distended, Bowel sounds present X 4 quads. : No signs and/or symptoms were reported regarding the genitourinary system. EENT: No signs and/or symptoms were reported regarding the EENT system. Derm: Skin B[place]ore noted to coccyx. Skin is pink, warm \\T\\ dry. Musculoskeletal: Range of motion: limited in all extremities. 21:57 Reassessment: Patient appears in no apparent distress at this time. No changes from jb4 previously documented assessment. Patient and/or family updated on plan of care and expected duration. Pain level reassessed. Respirations are even and unlabored pt is now verbally responding to family questions. 22:44 Reassessment: Patient appears in no apparent distress at this time. No changes from jb4 previously documented assessment. Patient and/or family updated on plan of care and expected duration. Pain level reassessed. Family is at the bedside. 02/01 00:09 Reassessment: Patient appears in no apparent distress at this time. No changes from jb4 previously documented assessment. Patient and/or family updated on plan of care and expected duration. Pain level reassessed. Family at the bedside. 01:00 Reassessment: Patient appears in no apparent distress at this time. No changes from jb4 previously documented assessment. Patient and/or family updated on plan of care and expected duration. Pain level reassessed. 02:00 Reassessment: Patient appears in no apparent distress at this time. No changes from jb4 previously documented assessment. Patient and/or family updated on plan of care and expected duration. Pain level reassessed. Vital Signs: 01/31 19:58 BP 123 / 77; Pulse 97; Resp 20; Temp 99.0; Pulse Ox 95% on R/A; Weight 58.97 kg (R); aj1 21:45 BP 145 / 83; Pulse 89; Resp 22 S; Pulse Ox 96% on R/A; jb4 22:44 BP 131 / 72; Pulse 81; Resp 16; Pulse Ox 96% on R/A; jb4 02/01 00:09 BP 111 / 67; Pulse 84; Resp 16; Pulse Ox 94% ; jb4 01:15 BP 119 / 74; Pulse 87; Resp 14; Pulse Ox 93% on R/A; jb4 02:15 BP 113 / 75; Pulse 78; Resp 16; Pulse Ox 95% on R/A; jb4 ED Course: 01/31 19:30 Inserted saline lock: 22 gauge in left antecubital area, using aseptic technique. Blood jb4 collected. 19:45 First set of blood cultures drawn by ED staff, Second set of blood cultures drawn by ED jb4 staff. 19:50 Patient arrived in ED. es 19:51 Kevin Falcon MD is Private Physician. es 19:58 Triage completed. aj1 19:58 Arm band placed on Patient placed in an exam room. aj1 20:07 Carlos Manuel Mchugh, RN is Primary Nurse. jb4 20:18 Donal Miramontes MD is Attending Physician. gs 20:19 Patient has correct armband on for positive identification. Bed in low position. Call jb4 light in reach. Side rails up X 1. surveillance monitor on. Pulse ox on. NIBP on. 21:16 Chest Single View XRAY In Process Unspecified. EDMS 21:53 Notified ED physician of a critical lab result(s). Lactate 2.2. la1 23:[address] via stretcher. kw1 23:45 CT Head Brain wo Cont In Process Unspecified. EDMS 23:47 CT completed. Patient tolerated procedure well. Patient moved back from CT. kw1 02/01 01:39 Kevin Falcon MD is Hospitalizing Provider. gs 02:25 No provider procedures requiring assistance completed. jb4 02:25 Patient admitted, IV remains in place. jb4 Administered Medications: 01/31 21:15 Drug: NS 0.9% 1000 ml Route: IV; Rate: 1 bolus; Site: left antecubital; jb4 22:30 Follow up: Response: No adverse reaction; IV Status: Completed infusion jb4 02/01 02:16 Drug: Cefepime 1 grams Route: IVPB; Rate: 200 ml/hr; Infused Over: 30 mins; Site: left jb4 antecubital; 02:47 Follow up: IV Status: Completed infusion la1 Outcome: 01:40 Decision to Hospitalize by Provider. 02:25 Admitted to Tele accompanied by tech, via stretcher, room 410, with chart. jb4 02:25 Condition: stable 02:25 Discharge instructions given to patient, family, Instructed on the need for admit, Demonstrated understanding of instructions. 02:47 Patient left the ED. la1 Signatures: Dispatcher [employer] Simi Retana RN RN aj1 Haleigh Galicia Lee, RN RN la1 Carlos Manuel Mchugh RN RN jb4 Donal Miramontes MD MD gs Wilhelm, Kimberly kw1 Corrections: (The following items were deleted from the chart) 01/31 19:59 19:55 Presenting complaint: states: "He's real tired, no energy, he's been like aj1 this the past couple of days. Home health came and they said if he gets worse to take him in and he's worse. He usually walks with assistance but today he hasn't been able to do that. Today when they are offering him liquids he won't suck it out of the straw so they've had to give it to him with a spoon. He usually talk to them with garbled speech, but today he isn't talking to them at all. Patient's states he was last at his normal 2 days ago. aj1 02/01 01:25 01/31 20:17 Derm: Skin is intact, Skin is pink, warm \\T\\ dry. jb4 jb4
--- NOTE | 2018-02-01 01:41 | EDPHYS ---
Physician Documentation [facility] Name: Guillermo Diehl Age: 72 yrs Sex: Male : 1945 Arrival Date: 01/31/2018 Time: 19:50 Bed 15 Private MD: Kevin Falcon ED Physician Donal Miramontes HPI: 02/01 01:57 This 72 yrs old Male presents to ER via Wheelchair with complaints of gs weakness. 01:57 The patient presents to the emergency department with weakness of the entire body, gs generalized weakness. Onset: The symptoms/episode began/occurred 2 day(s) ago, and became worse and became persistent. Associated signs and symptoms: Pertinent positives: altered mental status, Pertinent negatives: paresthesias. Severity of symptoms: At their worst the symptoms were moderate in the emergency department the symptoms are unchanged. The patient has experienced similar episodes in the past, several times, and the symptoms today are exactly the same. Historical: - Allergies: 01/31 19:58 Lipitor; aj1 19:58 Niacin; aj1 19:58 PENICILLINS; aj1 19:58 Sulfa (Sulfonamide Antibiotics); aj1 - Home Meds: 19:58 aspirin 81 mg Oral TbEC 1 tab once daily [Active]; finasteride 5 mg Oral tab 1 tab once aj1 daily [Active]; glipizide 10 mg Oral tab 1 tab 2 times per day [Active]; Vitamin D Oral 5000 unit twice a day [Active]; - PMHx: 19:58 CVA; Diabetes - IDDM; Hypertension; pseudo seizures; aj1 - Immunization history:: Flu vaccine is not up to date. - Social history:: Smoking status: Patient/guardian denies using tobacco. - Ebola Screening: : Patient denies travel to an Ebola-affected area in the 21 days before illness onset. ROS: 02/01 01:57 Unable to obtain ROS due to baseline dementia. gs Exam: :57 Head/Face: Normocephalic, atraumatic. Eyes: Pupils equal round and reactive to light, gs extra-ocular motions intact. Lids and lashes normal. Conjunctiva and sclera are non-icteric and not injected. Cornea within normal limits. Periorbital areas with no swelling, redness, or edema. ENT: Nares patent. No nasal discharge, no septal abnormalities noted. Tympanic membranes are normal and external auditory canals are clear. Oropharynx with no redness, swelling, or masses, exudates, or evidence of obstruction, uvula midline. Mucous membranes moist. Neck: Trachea midline, no thyromegaly or masses palpated, and no cervical lymphadenopathy. Supple, full range of motion without nuchal rigidity, or vertebral point tenderness. No Meningismus. Chest/axilla: Normal chest wall appearance and motion. Nontender with no deformity. No lesions are appreciated. Cardiovascular: Regular rate and rhythm with a normal S1 and S2. No gallops, murmurs, or rubs. Normal PMI, no JVD. No pulse deficits. Respiratory: Lungs have equal breath sounds bilaterally, clear to auscultation and percussion. No rales, rhonchi or wheezes noted. No increased work of breathing, no retractions or nasal flaring. Abdomen/GI: Soft, non-tender, with normal bowel sounds. No distension or tympany. No guarding or rebound. No evidence of tenderness throughout. Back: No spinal tenderness. No costovertebral tenderness. Full range of motion. Skin: Warm, dry with normal turgor. Normal color with no rashes, no lesions, and no evidence of cellulitis. MS/ Extremity: Pulses equal, no cyanosis. Neurovascular intact. Full, normal range of motion. 01:57 Constitutional: The patient appears awake. 01:57 Neuro: Orientation: Not oriented to place, time, Motor: moves all fours, Sensation: no obvious gross deficits. 02:00 ECG was reviewed by the Attending Physician. Vital Signs: 01/31 19:58 BP 123 / 77; Pulse 97; Resp 20; Temp 99.0; Pulse Ox 95% on R/A; Weight 58.97 kg (R); aj1 21:45 BP 145 / 83; Pulse 89; Resp 22 S; Pulse Ox 96% on R/A; jb4 22:44 BP 131 / 72; Pulse 81; Resp 16; Pulse Ox 96% on R/A; jb4 02/01 00:09 BP 111 / 67; Pulse 84; Resp 16; Pulse Ox 94% ; jb4 01:15 BP 119 / 74; Pulse 87; Resp 14; Pulse Ox 93% on R/A; jb4 02:15 BP 113 / 75; Pulse 78; Resp 16; Pulse Ox 95% on R/A; jb4 MDM: 01/31 20:24 Patient medically screened. 02/01 01:57 Data reviewed: vital signs, nurses notes. Counseling: I had a detailed discussion with the patient and/or guardian regarding: the historical points, exam findings, and any diagnostic results supporting the discharge/admit diagnosis, the need for further work-up and treatment in the hospital. Response to treatment: the patient's symptoms have mildly improved after treatment. Physician consultation: Kevin Falcon MD and will see patient in inpatient room. ED course: ddx cva, sepsis, electrolyte abl, med reaction. 01/31 20:26 Order name: Basic Metabolic Panel; Complete Time: 22:14 01/31 20:26 Order name: Blood Culture Adult (2) 01/31 20:26 Order name: CBC with Diff; Complete Time: 22:14 01/31 20:26 Order name: CPK; Complete Time: 22:14 01/31 20:26 Order name: Lactate; Complete Time: 22:14 01/31 20:26 Order name: LFT's; Complete Time: 22:14 01/31 20:26 Order name: Lipase; Complete Time: 22:14 01/31 20:26 Order name: Procalcitonin; Complete Time: 22:14 01/31 20:26 Order name: Protime (+inr); Complete Time: 22:14 01/31 20:26 Order name: Troponin (emerg Dept Use Only); Complete Time: 22:14 01/31 20:26 Order name: Urine Microscopic Only; Complete Time: 23:11 01/31 22:38 Order name: Urine Dipstick--Ancillary (enter results); Complete Time: 23:11 em1 02/01 01:56 Order name: Basic Metabolic Panel [facility] 02/01 01:56 Order name: Basic Metabolic Panel [facility] 01/31 20:26 Order name: Chest Single View XRAY 01/31 20:26 Order name: Accucheck; Complete Time: 21:18 01/31 20:26 Order name: Cardiac monitoring; Complete Time: 21:18 01/31 20:26 Order name: EKG - Nurse/Tech; Complete Time: 21:46 01/31 20:26 Order name: IV Saline Lock - Large Bore; Complete Time: 21:18 01/31 20:26 Order name: Labs collected and sent; Complete Time: 21:18 01/31 20:26 Order name: O2 Per Protocol; Complete Time: 21:18 01/31 20:26 Order name: O2 Sat Monitoring; Complete Time: 21:19 01/31 20:26 Order name: Urine Dipstick-Ancillary (obtain specimen); Complete Time: 22:32 01/31 23:19 Order name: CT Head Brain wo Cont 02/01 01:57 Order name: CBC with Automated Diff EDMS 02/01 01:57 Order name: CBC with Automated Diff EDMS 02/01 02:44 Order name: Lactate Sepsis 2 HR Follow-up EDMS EC:00 Rate is 82 beats/min. Rhythm is regular. RI interval is normal. QRS interval is normal. Q waves are Old. Clinical impression: Abnormal EKG without significant change. Administered Medications: 01/31 21:15 Drug: NS 0.9% 1000 ml Route: IV; Rate: 1 bolus; Site: left antecubital; [facility] 22:30 Follow up: Response: No adverse reaction; IV Status: Completed infusion [facility] 02/01 02:16 Drug: Cefepime 1 grams Route: IVPB; Rate: 200 ml/hr; Infused Over: 30 mins; Site: left [facility]; 02:47 Follow up: IV Status: Completed infusion la1 Disposition: 02/01/18 01:40 Hospitalization ordered by Kevin Falcon for Inpatient Admission. Preliminary diagnosis is Sepsis, unspecified organism. - Bed requested for Telemetry/MedSurg (Inpatient). - Status is Inpatient Admission. la1 - Condition is Stable. - Problem is new. - Symptoms are unchanged. UTI on Admission? No Critical care time excluding procedures: :57 Critical care time: Bedside Care: 10 minutes, Consultation: 10 minutes, Family Intervention: 10 minutes. Total time: 30 minutes Signatures: Dispatcher [employer] EDMS Simi Carlos RN RN john paul1 Lynne Naranjo RN Andrew Colin RN RN la1 Carlos Manuel Mchugh RN RN jb4 Donal Miramontes MD MD Corrections: (The following items were deleted from the chart) 01:47 01:40 Hospitalization Ordered by Kevin Falcon MD for Inpatient Admission. Preliminary mw diagnosis is Sepsis, unspecified organism. Bed requested for Telemetry/MedSurg (Inpatient). Status is Inpatient Admission. Condition is Stable. Problem is new. Symptoms are unchanged. UTI on Admission? No. gs 02:47 01:47 02/01/2018 01:40 Hospitalization Ordered by Kevin Falcon MD for Inpatient la1 Admission. Preliminary diagnosis is Sepsis, unspecified organism. Bed requested for Telemetry/MedSurg (Inpatient). Status is Inpatient Admission. Condition is Stable. Problem is new. Symptoms are unchanged. UTI on Admission? No. mw
[2018-02-01] MEDS ORDERED: ONDANSETRON 4 MG/2 ML VIAL IV PRN (01:54)
[2018-02-01] MEDS: NA CHLORIDE 0.9% 1,000 ML IV SCH ×3 (03:00→22:00)
[2018-02-01] MEDS ORDERED: CEFEPIME 1 GM/VIAL IV SCH (09:00)
--- NOTE | 2018-02-01 09:26 | RAD REPORT ---
EXAM DESCRIPTION: CT - Head Brain Wo Cont - 02/01/2018 5:52 am CLINICAL HISTORY: Transient alteration of awareness, declining state A preliminary report was provided at the time of the study and reviewed prior to final report. COMPARISON: CT imaging November 29, 2017 TECHNIQUE: Axial 5 mm thick images of the head were obtained without IV contrast. All CT scans are performed using dose optimization technique as appropriate and may include automated exposure control or mA/KV adjustment according to patient size. FINDINGS: No intracranial hemorrhage, mass, edema or shift of mid-line structures. No acute infarcti on changes seen. Advanced atrophy and chronic ischemic changes are present. Ventricles are in proport ion to volume loss. Arterial calcifications are present. Intracranial findings are similar to the rec ent November study. Mastoid air cells and visualized portions of the paranasal sinuses are clear. No acute bony findings. IMPRESSION: No acute intracranial finding. Advanced atrophy and chronic ischemic change similar the November 29 imaging.
[2018-02-01] MEDS: CEFEPIME 1 GM/100 ML BAG IV SCH ×2 (10:00→20:19)
--- NOTE | 2018-02-01 11:47 | EKG ---
Test Date: 2018-01-31 Test Time: 21:35:00 Commercial Food Instructor: MIGUEL MEASUREMENT RESULTS: Intervals: Rate: 82 NC: 150 QRSD: 90 QT: 402 QTc: 469 [place]: P: 83 NC: 150 QRS: 87 T: 7 INTERPRETIVE STATEMENTS: Sinus rhythm with occasional premature ventricular complexes Inferior infarct, age undetermined Abnormal ECG Compared to ECG 11/29/2017 10:49:33 Ventricular premature complex(es) now present Myocardial infarct finding still present Electronically Signed On 02-01-18 11:45:41 PEST CONTROL SERVICE TECHNICIAN by Raphael Garcias
--- NOTE | 2018-02-01 12:54 | RAD REPORT ---
EXAM DESCRIPTION: RAD - Chest Single View - 01/31/2018 9:42 pm CLINICAL HISTORY: Weakness, shortness of breath, hypertension final report was delayed due to networ k malfunction COMPARISON: November 29 TECHNIQUE: AP portable chest image was obtained 2057 hours . FINDINGS: Fibrotic changes are present throughout the lung jacobo. Patient has very dense calcified pleural plaquing changes at the left base and left midlung field. This is a stable pattern. No acute infiltrate, failure or mass suspected. Trachea is midline. Heart and vasculature are normal. No measu rable pleural effusion and no pneumothorax. No acute bony abnormality seen. No acute aortic findings suspected. IMPRESSION: Chronic left-sided pleural change and chronic bilateral fibrotic lung change. No acute f indings.
[2018-02-01] MEDS ORDERED: D50W 25 GM/50 ML SYRINGE IV PRN (16:29)
[2018-02-01] MEDS ORDERED: GLUCAGON 1 MG/VIAL IM PRN (16:29)
[2018-02-01] MEDS: INSULIN -REGULAR HUMAN 50 UNIT/0.5 ML ML SQ SCH (18:00)
--- NOTE | 2018-02-01 21:32 | PN ---
Date of Progress Note: 02/01/2018 The patient has no significant changes in his responsiveness and he will respond to some commands and pain. However, overall since his mental status is somewhat suppressed, his family states he has had some rectal bleeding. Physical exam did reveal a thrombosed hemorrhoid internally with not any bright red bleeding. A smal l pressure lesion is present on the coccygeal area. A modified barium swallow was ordered and the pa tient was kept n.p.o. due to the positive findings for the swallow test and discussion with the famil y as far as feeding was initiated today and will be continued depending on the results. HR/MODL Voice ID: [id number] Report ID: [id number]
--- NOTE | 2018-02-01 21:44 | HP ---
Date of Admission: 02/01/2018 Chief Complaint: Altered mental status, generalized weakness. History Of Present Illness: The patient was brought to the emergency room, somewhat similar pattern in the past where he has had a change in his mental status in regards to responsiveness and confusion as well as decreased physical activity. No other systemic symptoms have noted. Past History: The patient has had significant central nervous system problems related to strokes, se izures, also NIDDM which has been under the good control on minimal oral medication rather strict t. However, his general condition has continued to deteriorate over the past few months. Social History: Nonsmoker, nondrinker. Physical Examination: General: On examination, the patient is a very thin, almost cachectic looking elderly male, vaguely responsive to command and stimulation. Head and Neck: Normocephalic. Pupils are equal, reactive to light and accommodation. Fundi negativ e. Trachea midline. Thyroid not palpable. ENT: Negative. Chest: Clear to P and A. Cardiovascular: PMI midclavicular line. Heart sounds normal. Peripheral pulses present and equal b ilaterally. Abdomen: No organomegaly. Bowel sounds present. Extremities: Moderately dehydrated. Good tone an d movement bilaterally. Neurologic: Reflexes physiologic. Rectal: Deferred. Impression: Altered mental status, possibly secondary to sepsis; dku-ouauyxk-fxubfiyij diabetes tony itus, good control; post cerebrovascular accident with seizure disorder. Plan: The patient will be admitted, placed on IV fluids. reveal possible sepsis. Antibiot ics were started. Followup as far as his swallowing mechanism will be done during his hospital stay. HR/MODL Voice ID: [id number]
[2018-02-02 05:06] LABS: Absolute Lymphocytes (CBC) 1.7 K/uL (0.7-4.9); Absolute Monocytes 0.5 K/uL (0.1-1.3); Absolute Neutrophil 9.2 K/uL (1.8-8.0); Basophils % 0.8 % (0-1.3); Eosinophils % 1.2 % (0-4.4); Hematocrit 38.8 % (39.6-49.0); Lymphocytes % 14.3 % (15.3-44.8); MCV 93.4 fL (80-100); MPV 10.3 fL (7.6-11.3); Monocytes % 4.5 % (3.3-12.3); RBC Red Blood Cell Count 4.15 M/uL (4.33-5.43)
[2018-02-02 05:20] LABS: Potassium 3.3 mmol/L (3.5-5.1)
[2018-02-02] MEDS: INSULIN -REGULAR HUMAN 50 UNIT/0.5 ML ML SQ SCH ×4 (06:00→18:00)
[2018-02-02] MEDS: NA CHLORIDE 0.9% 1,000 ML IV SCH ×3 (06:08→21:35)
[2018-02-02] MEDS: CEFEPIME 1 GM/100 ML BAG IV SCH ×2 (09:12→21:26)
[2018-02-02] MEDS: KCL 20 MEQ/100 mL IVPB 20 MEQ/100 ML BAG IV SCH ×2 (09:12→11:45)
[2018-02-02] MEDS ORDERED: Phenylephrine HCl 10 MG/ML 1 ML VIAL ONE (09:59)
--- NOTE | 2018-02-02 10:02 | RAD REPORT ---
EXAM DESCRIPTION: RAD - Barium Swallow Modified - 02/02/2018 9:43 am CLINICAL HISTORY: Dysphagia, difficulty swallowing COMPARISON: None. TECHNIQUE: The patient was given liquid, semi-solid and solid forms of barium. Lateral view fluorosc opic imaging was performed in conjunction with speech pathology service. FINDINGS: Multiple episodes of laryngeal penetration observed. Patient was unable to clear this cont rast. Aspiration occurred with thin liquid barium, nectar and honey consistency contrast. Contrast wa s seen in the valleculae and piriform sinuses. Delayed swallow reflex noted. There were 31 cine loop acquisitions obtained. Fluoro time was 4 minutes 6 seconds. IMPRESSION: Modified barium swallow as detailed above and on speech pathology report.
--- NOTE | 2018-02-02 22:51 | PN ---
Date of Progress Note: 02/02/2018 Basically the patient is status quo, minimally responsive to commands and painful stimuli. He showed a positive modified barium swallow. Therefore, the question of feeding methods, whether we use a PE G tube and/or a PICC line with was discussed with the family and a consult will be left fo r the head start teacher to see whether he is an even a candidate for the PEG tube. HR/MODL Voice ID: [id number] Report ID: [id number]
[2018-02-03] MEDS: INSULIN -REGULAR HUMAN 50 UNIT/0.5 ML ML SQ SCH ×4 (00:40→18:00)
[2018-02-03] MEDS: NA CHLORIDE 0.9% 1,000 ML IV SCH ×3 (04:00→14:00)
[2018-02-03 06:19] LABS: BUN Blood Urea Nitrogen 18 mg/dL (7-18); Bicarbonate 23 mmol/L (21-32); Glucose Level 79 mg/dL (74-106); Potassium 3.7 mmol/L (3.5-5.1); Sodium Level 151 mmol/L (136-145)
[2018-02-03] MEDS ORDERED: KCL 20 MEQ/100 mL IVPB 20 MEQ/100 ML BAG IV SCH (09:00)
[2018-02-03] MEDS: CEFEPIME 1 GM/100 ML BAG IV SCH (09:00)
[2018-02-03] MEDS: CEFEPIME/SWI 1gm 1 GM/10 ML SYR IV SCH ×2 (10:20→22:02)
[2018-02-03] MEDS: D5W 1,000 ML IV SCH (15:46)
--- NOTE | 2018-02-03 20:58 | PN ---
Date of Progress Note: 02/03/2018 The patient is basically status quo. Discussion was held with the surgeon as far as putting in the P EG tube in. Due to some familial constraints, this has been changed from today until Tuesday morning. His sodium has also increased somewhat. Therefore, D5W will be instituted with the sliding scale. Responsiveness is about the same. I think we will continue the antibiotic for complete the fifth day of treatment due to presumed sepsis and we will keep him n.p.o. Obviously, the patient will be requ ired to remain in hospital until the PEG tube is inserted as he has marked malnutrition and I suspect variable blood sugars, once we change the IV fluids. HR/MODL Voice ID: [id number] Report ID: [id number]
[2018-02-04] MEDS: D5W 1,000 ML IV SCH ×3 (01:43→20:35)
[2018-02-04] MEDS: INSULIN -REGULAR HUMAN 50 UNIT/0.5 ML ML SQ SCH ×4 (06:00→18:00)
[2018-02-04 06:23] LABS: Potassium 3.4 mmol/L (3.5-5.1)
[2018-02-04] MEDS: KCL 20 MEQ/100 mL IVPB 20 MEQ/100 ML BAG IV SCH ×2 (10:58→12:57)
[2018-02-04] MEDS: CEFEPIME/SWI 1gm 1 GM/10 ML SYR IV SCH ×2 (11:02→20:35)
--- NOTE | 2018-02-04 14:24 | CON ---
Date of Consultation: 02/03/2018 Reason For Consultation: Feeding tube access. Brief History Of Present Illness: The patient is a 72-year-old male with a past medical history of c entral nervous problems related to stroke, seizures, "pseudoseizures", and diabetes who continued to have deterioration of his general status and altered mental status with increased generalized weaknes s over the past several months. He has increased confusion, decreased physical activity. I was unab le to obtain an exam from the patient, but he is accompanying in the room by his and a daughter/ family member, and his , who is his primary night stocker. Therefore, information is obtained primar isabel from the chart and from the patient's , as the patient does not respond to my questions. Dur ing his admission to the hospital, he had a modified barium swallow, as there was some evidence of as piration and inability to swallow. The modified barium swallow showed multiple episodes of laryngeal penetration observed, the patient was unable to clear. This contrast aspiration occurred with thin liquid barium, nectar and honey consistent contrast. Contrast was seen in the vallecula and piriform sinuses. Delayed swallowing reflex is noted. There were 31 cine loop acquisitions obtained of the patient with the above stated findings. Speech Therapy note also made recommendation of n.p.o. (noth ing by mouth) and that he should consider alternate means of nutrition due to high risk of this chron ic silent aspiration and severe oral dysphagia, with severe pharyngeal phase dysphagia was noted. Th erefore, I was consulted to see the patient regarding possible placement of a PEG tube for feeding ac cess. Past Medical History: Significant for as above. His past medical history includes the CVA, diabetes , seizure disorder and altered mental status. Past Surgical History: Include hand and shoulder surgery. Social History: There is no history of alcohol, tobacco, or IV drug use. Family History: Reviewed, noncontributory. Allergies: TO SULFA, PENICILLIN, NIACIN, LEVAQUIN, LIPITOR. Medications: Include, omeprazole, Vimpat, glipizide, vitamin C, lisinopril, Xarelto, metformin, Vict millie. He no longer takes the blood thinners other than aspirin, however. Home Medications: Include, aspirin, vitamin D3, finasteride and Glucophage. Physical Examination: Vital Signs: At the time examination, his BMI is 21.3. His vital signs were blood pressure 117/67, pulse is 55, respiratory rate 20, and temperature 97.9. General: He is sleeping, lethargic, and difficult to arouse. He is arousable and only makes moaning noises. No verbal communication or communication of any kind noted. HEENT: Otherwise normocephalic. His sclerae were anicteric. His oropharynx is clear with somewhat dry mucous membranes. Neck: Supple. No JVD. Chest: Normal expansion and excursion. Cardiovascular: Regular rate and rhythm. Pulmonary: Clear to auscultation bilaterally. Abdomen: Soft, nontender, and quite scaphoid. Extremities: He has significant contractures. Skin: Warm and dry. Laboratory Data: White blood cell count of 11.6, hemoglobin is 13.3, hematocrit 38.8, platelet count is 230. His sodium was 151, potassium 3.7, chloride 119, carbon dioxide 23, BUN 18, creatinine 0.8, glucose i s 79. He had imaging performed which included a modified barium swallow described as above, and head CT on 01/31/2018, which officially read as no acute intracranial finding, advanced atrophy and chronic isch emic change similar to 11/29/2017, imaging. He additionally had a chest x-ray performed which is off icially read as chronic left-sided pleural changes, chronic bilateral fibrotic lung changes, and no a cute findings. Assessment And Plan: This is a 72-year-old male with significant dysphagia and high risk for aspirat ion as such nutritional is essentially unable to be obtained safely for oral route. Therefore, I hav e discussed the risks, benefits, and alternatives of placement of feeding PEG tube percutaneous endos copically placed gastrostomy tube. The risks were discussed, which included bleeding, infection, dam age to any surrounding organs, intestinal perforation, septic shock, need for further operations or p rocedures. The patient's family wanted to discuss this and will decide on a plan, but wanted to disc uss this with family as a whole and as such are not ready to make a decision at this point, however, should they decide to proceed, we will be available and I will follow along. Should this be a decisi on the family wishes to make to place the tube. Thank you for this interesting consult. ANISH/DEVIN Voice ID: [id number] Report ID: [id number]
--- NOTE | 2018-02-04 15:28 | P.PN ---
Subjective Date of Service: 02/04/18 Primary Care Provider: Dr. Falcon(I am covering for him) Chief Complaint: Altered mental status Subjective: Demented, Other (Patient nonverbal) Physical Examination - Vital Signs Temperature: 97.8 F Blood Pressure: 126/58 Pulse: 53 Respirations: 20 Pulse Ox (%): 96 - Physical Exam General: Alert, In no apparent distress, Cachectic, Demented, Other (Patient nonverbal. Patient appears malnourished. Muscle wasting throughout) HEENT: Atraumatic Neck: Supple Respiratory: Clear to auscultation bilaterally, Normal air movement Cardiovascular: Normal pulses, Regular rate/rhythm Gastrointestinal: Normal bowel sounds, Soft and benign, Non-distended, No tenderness, No masses, No rebound, No guarding Integumentary: Other (Muscle wasting throughout) - Studies Medications List Reviewed: Yes Assessment & Plan Discharge Plan: Home Plan to discharge in: 72 Hours Physician Review Additional Text: Impression: Toxic encephalopathy secondary to possible sepsis related buttucks ulcer complicated with underlying history of CVA with seizure disorder Dysphagia Failed MBS Severe malnutrition Hypernatremia Diabetes mellitus BPH GERD Plan: Toxic encephalopathy secondary to possible sepsis related buttucks ulcer complicated with underlying history of CVA with seizure disorder: Case discussed with Dr. Falcon yesterday. Continue with IV antibiotic therapy. Will continue with IV fluids. Patient has failed modified barium swallow. Patient has been evaluated by surgery for PEG tube placement. This is to occur on Tuesday. Spoke with at bedside. Advanced directives addressed. desires to continued full code. She is to discuss further with daughter concerning this in detail. Advanced directives address in detail with PCP. PCP expressed that the patient's overall condition is poor. Will discuss with PCP about the possibility of dog positive and starting nutrition. Will start DVT prophylaxis. Dysphagia Failed MBS: PEG tube planned for Tuesday. Severe malnutrition: Continue with D5W. Will monitor closely. Patient will get PEG tube on Tuesday. Hypernatremia: Continue with D5W. Will monitor and adjust appropriately. Diabetes mellitus: Continue sliding scale. Will monitor closely. BPH: Will continue with medication. GERD: Will start Pepcid. Time Spent Managing Pts Care (In Minutes): 55
[2018-02-04] MEDS: ENOXAPARIN 30 MG/0.3 ML SQ SCH (18:37)
[2018-02-04] MEDS: FAMOTIDINE 20 MG/2 ML VIAL IV SCH (20:35)
[2018-02-04] MEDS: ASPIRIN 81 MG CHEWABLE TABLET PO SCH (20:49)
[2018-02-04] MEDS ORDERED: KCL 20 MEQ/100 mL IVPB 20 MEQ/100 ML BAG IV SCH (22:00)
[2018-02-05] MEDS: INSULIN -REGULAR HUMAN 50 UNIT/0.5 ML ML SQ SCH ×4 (06:00→17:32)
[2018-02-05] MEDS: D5W 1,000 ML IV SCH (06:27)
[2018-02-05 06:48] LABS: Potassium 3.4 mmol/L (3.5-5.1)
[2018-02-05] MEDS: KCL 20 MEQ/100 mL IVPB 20 MEQ/100 ML BAG IV SCH ×2 (08:50→11:55)
[2018-02-05] MEDS: CEFEPIME/SWI 1gm 1 GM/10 ML SYR IV SCH ×2 (08:50→20:15)
[2018-02-05] MEDS: D5 0.45 NS 1,000 ML IV SCH ×2 (08:50→17:29)
[2018-02-05] MEDS: FINASTERIDE 5 MG TAB PO SCH (08:51)
[2018-02-05] MEDS: FAMOTIDINE 20 MG/2 ML VIAL IV SCH ×2 (08:53→20:16)
--- NOTE | 2018-02-05 15:20 | P.PN ---
Subjective Date of Service: 02/05/18 Primary Care Provider: Dr. Falcon(I am covering for him) Chief Complaint: Altered mental status Subjective: Other (Overall stable no changes noted) Physical Examination - Vital Signs Temperature: 98.5 F Blood Pressure: 99/60 Pulse: 58 Respirations: 20 Pulse Ox (%): 94 - Physical Exam General: Other (Patient nonverbal) Neck: Supple Respiratory: Clear to auscultation bilaterally, Normal air movement Cardiovascular: Normal pulses, Regular rate/rhythm Gastrointestinal: Normal bowel sounds, Soft and benign, Non-distended Neurological: Other (Muscle wasting throughout), Dementia (Patient nonverbal. Likely with underlying dementia related to vascular disease) - Studies Medications List Reviewed: Yes Assessment & Plan Discharge Plan: Home Plan to discharge in: 48 Hours Physician Review Additional Text: Impression: Toxic encephalopathy secondary to possible sepsis related buttucks ulcer complicated with underlying history of CVA with seizure disorder Dysphagia Failed MBS Severe malnutrition Hypernatremia Diabetes mellitus BPH GERD Plan: Toxic encephalopathy secondary to possible sepsis related buttucks ulcer complicated with underlying history of CVA with seizure disorder: Case discussed with Dr. Falcon on Tuesday. Will continue IV antibiotic therapy. Patient failed modifying barium swallow. Patient evaluated for PEG tube placement by surgery. desires PEG tube for placement. Risks and benefits addressed in detail. Advanced directives address in detail. She apparently had a discussion with her daughter yesterday. Patient understands advanced directives in detail. She wishes the patient to be do not resuscitate. still wants PEG tube placed. desires to see what response patient will get with nutrition. She will consider hospice if no significant improvement in the near future. Continue DVT prophylaxis. Will adjust IV fluids. Poor prognosis noted. also understands this. Dysphagia Failed MBS: PEG tube planned for Tuesday. Severe malnutrition: IV fluids adjusted. Will monitor closely. Patient will get PEG tube on Tuesday. Hypernatremia: IV fluids adjusted. Will monitor and adjust appropriately. Diabetes mellitus: Continue sliding scale. Will monitor closely. BPH: Will continue with medication. GERD: Will continue with Pepcid. Time Spent Managing Pts Care (In Minutes): 55
[2018-02-05] MEDS: ENOXAPARIN 30 MG/0.3 ML SQ SCH (17:00)
[2018-02-05] MEDS: ASPIRIN 81 MG CHEWABLE TABLET PO SCH (20:13)
[2018-02-06] MEDS: D5 0.45 NS 1,000 ML IV SCH ×5 (05:10→23:49)
[2018-02-06 05:12] LABS: Potassium 3.7 mmol/L (3.5-5.1)
[2018-02-06] MEDS: INSULIN -REGULAR HUMAN 50 UNIT/0.5 ML ML SQ SCH ×4 (05:45→18:00)
[2018-02-06] MEDS ORDERED: KCL 20 MEQ/100 mL IVPB 20 MEQ/100 ML BAG IV SCH (06:00)
[2018-02-06] MEDS: CEFEPIME/SWI 1gm 1 GM/10 ML SYR IV SCH ×2 (08:01→21:59)
[2018-02-06] MEDS: FAMOTIDINE 20 MG/2 ML VIAL IV SCH ×2 (08:01→22:00)
[2018-02-06] MEDS: FINASTERIDE 5 MG TAB PO SCH (08:03)
[2018-02-06] MEDS ORDERED: SIMETHICONE 40 MG/ 0.6 ML ONE (09:23)
[2018-02-06] MEDS ORDERED: NA CHLORIDE 0.9% 1,000 ML ONE (10:09)
[2018-02-06] MEDS ORDERED: LIDOCAINE 1% MPF 5 ML VIAL ONE (10:09)
[2018-02-06] MEDS ORDERED: PROPOFOL 200 MG/20 ML VIAL IV ONE (10:09)
--- NOTE | 2018-02-06 11:49 | ENDO RPT ---
[address], [address] EGD WITH PEG PROCEDURE REPORT EXAM DATE: 02/06/2018 PATIENT NAME: Guillermo Diehl MR #: [id number] BIRTHDATE: 1945 ATTENDING: Jace King DR STATUS: inpatient - 7 METALWORKER: Kai Mckeon SuppreMol Tech INDICATIONS: The patient is a 72 yr old Male here for an EGD with PEG due to dysphagia and malnutrition PROCEDURE PERFORMED: EGD-PEG MEDICATIONS: Per Anesthesia. TOPICAL ANESTHETIC: none CONSENT: The patient understands the risks and benefits of the procedure and understands that these risks include, but are not limited to: sedation, allergic reaction, infection, perforation and/or bleeding. Alternative means of evaluation and treatment include, among others: physical exam, x-rays, and/or surgical intervention. The patient elects to proceed with this endoscopic procedure. DESCRIPTION OF PROCEDURE: During intra-op preparation period all mechanical medical equipment was checked for proper function. Hand hygiene and appropriate measures for infection prevention was taken. After the risks, benefits and alternatives of the procedure were thoroughly explained, Informed consent was verified, confirmed and timeout was successfully executed by the treatment team. The patient was anesthetized with topical anesthesia and the EG-[id number] ([id number]) endoscope was introduced through the mouth and advanced to the pylorus. The instrument was slowly withdrawn as the mucosa was fully examined. Mild Atrophic gastritis was found in the total stomach. The stomach was then inflated with air, and by a combination of transillumination and manual palpation, the site for the gastrostomy tube placement was selected and marked on the anterior abdominal wall. The skin of the anterior abdomen was surgically prepped and draped with sterile towels. Utilizing strict sterile technique, the selected site was then anesthetized with 1% xylocaine by injection into the skin and subcutaneous tissue. A 1 cm incision was made through the skin and subcutaneous tissue, and the needle/cannula assembly was then passed through the abdominal wall and through the anterior wall of the stomach, maintaining visualization with the endoscope. A snare device previously placed through the instrument channel was then opened and placed around the cannula, the needle was removed, and the insertion wire was passed through the cannula and into the stomach lumen. The snare was then loosened from the cannula, and repositioned to snare the insertion wire. The snare was then pulled up to the endoscope distal tip, and the scope was then withdrawn bringing with it the snare and insertion wire. The insertion wire was then released from the snare, and then loop-attached to the PEG PULL gastrostomy tube. Using the "pull technique", the G-tube was then pulled into place by traction on the insertion wire at the abdominal wall end. PEG Placed. The G-tube insertion site was then cleansed once again, and the external bolster was placed over the tube to secure it to the abdominal wall. A sterile dressing was then applied, and the procedure terminated. Retroflexed views revealed a small hiatal hernia. The gastroscope was then slowly withdrawn and removed. ADVERSE EVENT: There were no complications. IMPRESSIONS: Mild Atrophic gastritis was found in the total stomach RECOMMENDATIONS: 1. follow-up: office 2 week(s) 2. avoid NSAIDS 3. follow PEG suggestions REPEAT EXAM: Jace King DR eSigned: Jace King DR 02/06/2018 11:48 AM cc: CPT CODES: ICD9 CODES: PATIENT NAME: Guillermo Diehl MR#: [id number]
--- NOTE | 2018-02-06 17:27 | P.PN ---
Subjective Date of Service: 02/06/18 Primary Care Provider: Dr. Falcon(I am covering for him) Chief Complaint: Altered mental status Subjective: No C/O voiced, Improving, Doing well Review of Systems 10-point ROS is otherwise unremarkable Physical Examination - Vital Signs Temperature: 97.0 F Blood Pressure: 134/65 Pulse: 60 Respirations: 20 Pulse Ox (%): 95 - Physical Exam General: Alert, In no apparent distress HEENT: Atraumatic Neck: Supple Respiratory: Clear to auscultation bilaterally, Rhonchi/gurgles Cardiovascular: Regular rate/rhythm, Normal S1 S2 Gastrointestinal: Normal bowel sounds, Soft and benign, Non-distended Musculoskeletal: No clubbing Integumentary: No rashes, No breakdown - Studies Microbiology Data (last 24 hrs): 01/31/18 21:10 Blood - Blood Aerobic Blood Culture - Final No growth in 5 days. 01/31/18 21:10 Blood - Blood Anaerobic Blood Culture - Final No growth in 5 days. 01/31/18 20:45 Blood - Blood Aerobic Blood Culture - Final No growth in 5 days. 01/31/18 20:45 Blood - Blood Anaerobic Blood Culture - Final No growth in 5 days. Medications List Reviewed: Yes Assessment And Plan Discharge Plan: Other Plan to discharge in: 72 Hours - Code Status/Comfort Care Code Status Assessed: Yes Physician Review Additional Text: Impression: Toxic encephalopathy secondary to possible sepsis related ulcer complicated with underlying history of CVA with seizure disorder Dysphagia Failed MBS Severe malnutrition Hypernatremia Diabetes mellitus BPH GERD Plan: Toxic encephalopathy secondary to possible sepsis related buttucks ulcer complicated with underlying history of CVA with seizure disorder: Case discussed with Dr. Falcon on Tuesday. Will continue IV antibiotic therapy. Dysphagia Failed MBS: Status post PEG tube placement at this time Severe malnutrition: IV fluids adjusted. Will monitor closely. s/p PEG tube placement at this time Hypernatremia: IV fluids adjusted. Will monitor and adjust appropriately. Diabetes mellitus: Continue sliding scale. Will monitor closely. BPH: Will continue with medication. GERD: Will continue with Pepcid. Critical Care: No
[2018-02-06] MEDS: ASPIRIN 81 MG CHEWABLE TABLET PO SCH (20:10)
[2018-02-07 05:19] LABS: Potassium 3.5 mmol/L (3.5-5.1)
[2018-02-07] MEDS: INSULIN -REGULAR HUMAN 50 UNIT/0.5 ML ML SQ SCH ×4 (06:00→17:55)
[2018-02-07] MEDS ORDERED: KCL 20 MEQ/100 mL IVPB 20 MEQ/100 ML BAG IV SCH (07:00)
[2018-02-07] MEDS: FINASTERIDE 5 MG TAB PO SCH (09:00)
[2018-02-07] MEDS: FAMOTIDINE 20 MG/2 ML VIAL IV SCH ×2 (09:12→20:49)
[2018-02-07] MEDS: CEFEPIME/SWI 1gm 1 GM/10 ML SYR IV SCH ×2 (09:12→20:48)
[2018-02-07] MEDS: D5 0.45 NS 1,000 ML IV SCH ×3 (10:00→22:46)
--- NOTE | 2018-02-07 10:12 | P.PN ---
Subjective Date of Service: 02/07/18 Primary Care Provider: Dr. Falcon(I am covering for him) Chief Complaint: Altered mental status Subjective: Improving Physical Examination - Vital Signs Temperature: 98.0 F Blood Pressure: 102/57 Pulse: 74 Respirations: 18 Pulse Ox (%): 94 - Physical Exam General: Cachectic, Confused Gastrointestinal: Other (soft, NT, PEG tube in place, dressings clean and dry) - Studies Medications List Reviewed: Yes Assessment And Plan - Current Problems (Diagnosis) (1) Malnutrition Current Visit: Yes Status: Acute - Plan - start tube feedings - check for refeeding syndrome Physician Review Additional Text: Impression: Toxic encephalopathy secondary to possible sepsis related ulcer complicated with underlying history of CVA with seizure disorder Dysphagia Failed MBS Severe malnutrition Hypernatremia Diabetes mellitus BPH GERD Plan: Toxic encephalopathy secondary to possible sepsis related buttucks ulcer complicated with underlying history of CVA with seizure disorder: Case discussed with Dr. Falcon on Tuesday. Will continue IV antibiotic therapy. Dysphagia Failed MBS: Status post PEG tube placement at this time Severe malnutrition: IV fluids adjusted. Will monitor closely. s/p PEG tube placement at this time Hypernatremia: IV fluids adjusted. Will monitor and adjust appropriately. Diabetes mellitus: Continue sliding scale. Will monitor closely. BPH: Will continue with medication. GERD: Will continue with Pepcid.
[2018-02-07] MEDS ORDERED: JEVITY 1.5 CAL LIQUID 1,000 ML BOT FT SCH (18:00)
[2018-02-07] MEDS: METOCLOPRAMIDE 10 MG/2mL INJ IV SCH (18:55)
[2018-02-07] MEDS: ASPIRIN 81 MG CHEWABLE TABLET PO SCH (20:48)
--- NOTE | 2018-02-08 01:02 | PN ---
Date of Progress Note: 02/07/2018 The patient is basically status quo as far as his responsiveness is concerned. Hydration seems stabl e and PEG tube feedings were delayed until this evening as commission auditor was unavailable; however, they w ere started tonight and depending on the outcomes, obviously, we will determine how long we need to k eep him here it see whether he can: 1.Tolerate it. 2.Figure of his proper doses. HR/MODL Voice ID: [id number] Report ID: [id number]
[2018-02-08] MEDS: INSULIN -REGULAR HUMAN 50 UNIT/0.5 ML ML SQ SCH ×4 (05:34→18:00)
[2018-02-08] MEDS: D5 0.45 NS 1,000 ML IV SCH (06:00)
[2018-02-08 07:41] LABS: Phosphorus 2.7 mg/dL (2.5-4.9); Potassium 3.5 mmol/L (3.5-5.1); Prealbumin 12.3 mg/dL (20-40)
[2018-02-08] MEDS: CEFEPIME/SWI 1gm 1 GM/10 ML SYR IV SCH ×2 (10:18→21:10)
[2018-02-08] MEDS: FINASTERIDE 5 MG TAB PO SCH (10:18)
[2018-02-08] MEDS: FAMOTIDINE 20 MG/2 ML VIAL IV SCH ×2 (10:19→21:13)
[2018-02-08] MEDS: METOCLOPRAMIDE 10 MG/2mL INJ IV SCH ×2 (10:19→21:11)
[2018-02-08] MEDS: ACETAMINOPHEN 500 MG TAB PO PRN (15:59)
[2018-02-08] MEDS: GLUCERNA 1.5 CAL 1,000 ML BOT FT SCH ×2 (17:40→21:13)
--- NOTE | 2018-02-08 20:45 | PN ---
Date of Progress Note: 02/08/2018 Basically is status quo. Tube feedings were started. Dietitian's input has been received and he delia l be started on bolus feedings this evening. Repeat blood work in the morning. A tentative goal was to send him home on the tube feedings on Tuesday. The status has been discussed with the family. Bl ood work has been stable and is continued to be monitored as well. His responsiveness has been uncha nged. HR/MODL Voice ID: [id number] Report ID: [id number]
[2018-02-08] MEDS: ASPIRIN 81 MG CHEWABLE TABLET PO SCH (21:10)
[2018-02-09] MEDS: INSULIN -REGULAR HUMAN 50 UNIT/0.5 ML ML SQ SCH ×4 (06:00→18:00)
[2018-02-09 06:44] LABS: Absolute Lymphocytes (CBC) 1.2 K/uL (0.7-4.9); Absolute Monocytes 0.5 K/uL (0.1-1.3); Absolute Neutrophil 5.8 K/uL (1.8-8.0); Basophils % 1.2 % (0-1.3); Eosinophils % 4.7 % (0-4.4); Hematocrit 42.6 % (39.6-49.0); MCH 31.7 pg (27.0-35.0); MCV 93.6 fL (80-100); MPV 10.4 fL (7.6-11.3); Monocytes % 6.9 % (3.3-12.3); RBC Red Blood Cell Count 4.55 M/uL (4.33-5.43)
[2018-02-09 07:00] LABS: BUN Blood Urea Nitrogen 13 mg/dL (7-18); Bicarbonate 25 mmol/L (21-32); Glucose Level 134 mg/dL (74-106); Potassium 3.6 mmol/L (3.5-5.1); Sodium Level 140 mmol/L (136-145)
[2018-02-09] MEDS: CEFEPIME/SWI 1gm 1 GM/10 ML SYR IV SCH (08:21)
[2018-02-09] MEDS: FINASTERIDE 5 MG TAB PO SCH (08:21)
[2018-02-09] MEDS: METOCLOPRAMIDE 10 MG/2mL INJ IV SCH ×2 (08:21→21:13)
[2018-02-09] MEDS: FAMOTIDINE 20 MG/2 ML VIAL IV SCH ×2 (08:21→21:13)
[2018-02-09] MEDS: GLUCERNA 1.5 CAL 1,000 ML BOT FT SCH ×5 (12:10→21:13)
[2018-02-09] MEDS: ASPIRIN 81 MG CHEWABLE TABLET PO SCH (21:13)
--- NOTE | 2018-02-09 21:13 | PN ---
Date of Progress Note: 02/09/2018 The patient actually seems a little more alert today. His blood work is still normal. He is getting his tube fittings bolus. Family has been instructed in the methodology. I will repeat the blood wo rk in the morning and if stable, can be discharged. There was no evidence of sepsis other than some original elevation in some of the blood tests. The cultures were all negative. We will discontinue the IV. The Lovenox has been discontinued since the PEG tube. We will continue on aspirin and perha ps at the time of discharge, hospital bed will also be considered and home health from the hospital w ill be evaluating for tube feedings, medication, and physical therapy. HR/MODL Voice ID: [id number] Report ID: [id number]
[2018-02-10] MEDS: INSULIN -REGULAR HUMAN 50 UNIT/0.5 ML ML SQ SCH ×4 (05:39→18:00)
[2018-02-10 06:36] LABS: Absolute Lymphocytes (CBC) 1.5 K/uL (0.7-4.9); Absolute Monocytes 0.6 K/uL (0.1-1.3); Absolute Neutrophil 4.5 K/uL (1.8-8.0); Basophils % 1.4 % (0-1.3); Eosinophils % 5.4 % (0-4.4); Lymphocytes % 21.7 % (15.3-44.8); MCH 32.1 pg (27.0-35.0); MCV 92.3 fL (80-100); MPV 10.1 fL (7.6-11.3); Monocytes % 7.8 % (3.3-12.3); RBC Red Blood Cell Count 4.44 M/uL (4.33-5.43)
[2018-02-10] MEDS: FINASTERIDE 5 MG TAB PO SCH (09:23)
[2018-02-10] MEDS: FAMOTIDINE 20 MG/2 ML VIAL IV SCH ×2 (09:24→21:50)
[2018-02-10] MEDS: METOCLOPRAMIDE 10 MG/2mL INJ IV SCH ×2 (09:24→21:50)
[2018-02-10] MEDS: GLUCERNA 1.5 CAL 1,000 ML BOT FT SCH ×5 (09:25→21:49)
[2018-02-10] MEDS: ASPIRIN 81 MG CHEWABLE TABLET PO SCH (21:50)
[2018-02-11] MEDS: INSULIN -REGULAR HUMAN 50 UNIT/0.5 ML ML SQ SCH ×4 (06:00→17:55)
[2018-02-11] MEDS: METOCLOPRAMIDE 10 MG/2mL INJ IV SCH ×2 (09:54→22:38)
[2018-02-11] MEDS: FINASTERIDE 5 MG TAB PO SCH (09:54)
[2018-02-11] MEDS: FAMOTIDINE 20 MG/2 ML VIAL IV SCH ×2 (09:54→22:38)
[2018-02-11] MEDS: GLUCERNA 1.5 CAL 1,000 ML BOT FT SCH ×5 (09:55→21:00)
--- NOTE | 2018-02-11 17:36 | PN ---
Date of Progress Note: 02/10/2018 Basically, status quo. tube feeding, which showed some residual . The family w as instructed at the end of the scenario, awaiting the tube feedings delivery and once this is clarif ied, he could be discharged. No significant change in his sensorium. HR/MODL Voice ID: [id number] Report ID: [id number]
--- NOTE | 2018-02-11 18:30 | PN ---
Date of Progress Note: 02/11/2018 Basically, the status quo. However, he has had his first elevated blood sugar and sliding scale was utilized. There is still some question about the time of delivery of the tube feedings. We therefor e keep him here until delivered as he gets 5 feedings per day. No change in his other status. HR/MODL Voice ID: [id number] Report ID: [id number]
[2018-02-11] MEDS: ASPIRIN 81 MG CHEWABLE TABLET PO SCH (22:38)
[2018-02-12] MEDS: INSULIN -REGULAR HUMAN 50 UNIT/0.5 ML ML SQ SCH ×4 (06:00→17:51)
[2018-02-12] MEDS: FINASTERIDE 5 MG TAB PO SCH (07:34)
[2018-02-12] MEDS: GLUCERNA 1.5 CAL 1,000 ML BOT FT SCH ×5 (07:34→20:28)
[2018-02-12] MEDS: FAMOTIDINE 20 MG/2 ML VIAL IV SCH ×2 (10:00→20:28)
[2018-02-12] MEDS: METOCLOPRAMIDE 10 MG/2mL INJ IV SCH ×2 (10:00→20:28)
[2018-02-12] MEDS: ASPIRIN 81 MG CHEWABLE TABLET PO SCH (20:28)
[2018-02-12 22:19] LABS: Absolute Lymphocytes (CBC) 1.5 K/uL (0.7-4.9); Absolute Monocytes 0.7 K/uL (0.1-1.3); Absolute Neutrophil 11.3 K/uL (1.8-8.0); Basophils % 0.8 % (0-1.3); Eosinophils % 1.4 % (0-4.4); Hematocrit 46.1 % (39.6-49.0); Lymphocytes % 10.6 % (15.3-44.8); MCV 93.2 fL (80-100); MPV 9.7 fL (7.6-11.3); Monocytes % 4.9 % (3.3-12.3); RBC Red Blood Cell Count 4.95 M/uL (4.33-5.43)
[2018-02-12 22:36] LABS: Albumin 2.8 g/dL (3.4-5.0); Bilirubin Total 0.2 mg/dL (0.2-1.0); Magnesium 2.2 mg/dL (1.8-2.4); Phosphorus 2.6 mg/dL (2.5-4.9); Potassium 4.7 mmol/L (3.5-5.1); Protein, Total 7.4 g/dL (6.4-8.2)
[2018-02-13] MEDS: NA CHLORIDE 0.9% 1,000 ML IV SCH ×3 (01:28→20:52)
[2018-02-13] MEDS ORDERED: DIPHENHYDRAMINE 50 MG/ML VIAL IV PRN (01:42)
[2018-02-13] MEDS: INSULIN -REGULAR HUMAN 50 UNIT/0.5 ML ML SQ SCH ×4 (06:00→18:32)
[2018-02-13] MEDS: FINASTERIDE 5 MG TAB PO SCH (08:26)
[2018-02-13] MEDS: FAMOTIDINE 20 MG/2 ML VIAL IV SCH ×2 (08:26→20:28)
[2018-02-13] MEDS: GLUCERNA 1.5 CAL 1,000 ML BOT FT SCH ×5 (09:15→21:53)
--- NOTE | 2018-02-13 09:17 | P.PN ---
Subjective Date of Service: 02/12/18 Patient is a 72-year-old gentleman presented for PEG tube placement. Patient was unresponsive all day according to the family. There were wanted to speak to a physician. I was called to assess the patient. Family medicine physician equipment installation professional stated to notify the hospitalist. No new medications except for the reglan. Patient's has some choreiform movements, and my concern is that patient may be having a dystonic reaction from the reglan. I will go ahead and hold this and hydrate. Patient has never taken Benadryl, and I am reluctant to give it at this time. Will give patient some fluids and see how he does in the next 12 hr. Continue tube feeding. If no significant changes then we can get 1 dose of Benadryl & reassess. Review of Systems is unable to be obtained Physical Examination - Vital Signs Temperature: 99 F Blood Pressure: 102/52 Pulse: 100 Respirations: 20 Pulse Ox (%): 92 - Physical Exam General: Unresponsive Respiratory: Clear to auscultation bilaterally, Normal air movement Cardiovascular: Regular rate/rhythm, Normal S1 S2 Gastrointestinal: Normal bowel sounds, Soft and benign, No tenderness Musculoskeletal: No clubbing, No swelling Neurological: Abnormal gait, Abnormal speech, Abnormal strength, Abnormal tone, Abnormal cranial nerve function, Abnormal reflexes, Abnormal affect, Dementia - Studies Medications List Reviewed: Yes Assessment & Plan - Problems (Diagnosis) (1) Dystonia Current Visit: Yes Status: Acute (2) Choreiform movements Current Visit: Yes Status: Acute (3) Altered mental status Onset Date: 05/28/15 Current Visit: No Status: Acute (4) CVA (cerebrovascular accident) Onset Date: 05/28/15 Current Visit: No Status: Acute (5) Diabetes mellitus Current Visit: No Status: Acute (6) Hypertension Current Visit: No Status: Acute (7) Pressure injury of coccygeal region, stage 2 Current Visit: No Status: Acute (8) Pseudoseizures Current Visit: No Status: Acute - Plan Plan: 1. Continue with hydration 2. Strict input and output 3. Hold Reglan 4. Benadryl if no improvement 5. GI and DVT prophylaxis Discharge Plan: Home Plan to discharge in: Greater than 2 days - Advance Directives Does patient have a Living Will: No Does patient have a Durable POA for Healthcare: Yes - Code Status/Comfort Care Code Status Assessed: Yes Code Status: Full Code Critical Care: No Time Spent Managing PTS Care (In Minutes): 45
[2018-02-13] MEDS: CEFEPIME/SWI 1gm 1 GM/10 ML SYR IV SCH ×2 (13:37→20:28)
[2018-02-13 14:05] LABS: Absolute Lymphocytes (CBC) 0.7 K/uL (0.7-4.9); Absolute Monocytes 0.9 K/uL (0.1-1.3); Absolute Neutrophil 9.3 K/uL (1.8-8.0); Basophils % 0.8 % (0-1.3); Eosinophils % 0.1 % (0-4.4); Hematocrit 47.7 % (39.6-49.0); Lymphocytes % 6.2 % (15.3-44.8); MCH 31.7 pg (27.0-35.0); MCV 93.4 fL (80-100); MPV 10.2 fL (7.6-11.3); Monocytes % 7.9 % (3.3-12.3)
[2018-02-13] MEDS ORDERED: NA CHLORIDE 0.9% 1,000 ML IV ONE (18:41)
[2018-02-13] MEDS: ASPIRIN 81 MG CHEWABLE TABLET PO SCH (20:28)
[2018-02-13] MEDS ORDERED: CEFEPIME 1 GM/VIAL IV SCH (21:00)
[2018-02-14] MEDS: INSULIN -REGULAR HUMAN 50 UNIT/0.5 ML ML SQ SCH ×4 (00:33→18:00)
[2018-02-14 05:33] VITALS: BMI 20.9
[2018-02-14 05:41] LABS: Absolute Lymphocytes (CBC) 1.3 K/uL (0.7-4.9); Absolute Monocytes 0.8 K/uL (0.1-1.3); Absolute Neutrophil 9.1 K/uL (1.8-8.0); Basophils % 0.9 % (0-1.3); Eosinophils % 0.7 % (0-4.4); Hematocrit 44.4 % (39.6-49.0); Lymphocytes % 11.2 % (15.3-44.8); MCH 31.4 pg (27.0-35.0); MPV 10.1 fL (7.6-11.3); Monocytes % 7.2 % (3.3-12.3); RBC Red Blood Cell Count 4.72 M/uL (4.33-5.43)
[2018-02-14 05:51] LABS: Potassium 4.4 mmol/L (3.5-5.1)
[2018-02-14 07:30] LABS: Urine White Blood Cell Casts OK
[2018-02-14 07:31] LABS: Blood Morphology Comment NOTED (NOT SEEN); Platelet Estimate ADEQ
[2018-02-14] MEDS: FAMOTIDINE 20 MG/2 ML VIAL IV SCH ×2 (08:54→20:13)
[2018-02-14] MEDS: FINASTERIDE 5 MG TAB PO SCH (08:55)
[2018-02-14] MEDS: CEFEPIME/SWI 1gm 1 GM/10 ML SYR IV SCH ×2 (08:55→20:12)
[2018-02-14] MEDS: GLUCERNA 1.5 CAL 1,000 ML BOT FT SCH ×5 (08:56→22:10)
[2018-02-14] MEDS: D5W 1,000 ML IV SCH ×2 (15:06→15:09)
--- NOTE | 2018-02-14 16:29 | PN ---
Date of Progress Note: 02/13/2018 Progress note on 02/13. The patient is basically status quo. He sleeps majority of the time, minimal responsiveness. The wh ite count has now gone up again. I suspect it becoming septic and will go back to the original antib iotics. The tube feedings have still not arrived. Family discussion as far as hospice will take terry ce again tonight. Progress note on 02/14. Basically status quo other than a chemistry, which is now becoming imbalance, so will be bolused. Co ntinue with IV antibiotics. The family has accepted hospice and this should go into effect tomorrow. However, the tube feedings are still not delivered. HR/MODL Voice ID: [id number] Report ID: [id number]
[2018-02-14] MEDS: NA CHLORIDE 0.9% 1,000 ML IV SCH (18:03)
[2018-02-14] MEDS: ACETAMINOPHEN 500 MG TAB PO PRN (18:12)
[2018-02-14] MEDS: ASPIRIN 81 MG CHEWABLE TABLET PO SCH (20:13)
[2018-02-15] MEDS: ACETAMINOPHEN 500 MG TAB PO PRN ×2 (00:10→20:20)
[2018-02-15] MEDS: INSULIN -REGULAR HUMAN 50 UNIT/0.5 ML ML SQ SCH ×4 (06:00→18:00)
[2018-02-15] MEDS: CEFEPIME/SWI 1gm 1 GM/10 ML SYR IV SCH ×2 (08:30→20:19)
[2018-02-15] MEDS: FINASTERIDE 5 MG TAB PO SCH (08:31)
[2018-02-15] MEDS: GLUCERNA 1.5 CAL 1,000 ML BOT FT SCH ×5 (08:31→20:20)
[2018-02-15] MEDS: NA CHLORIDE 0.9% 1,000 ML IV SCH (08:32)
[2018-02-15] MEDS: FAMOTIDINE 20 MG/2 ML VIAL IV SCH ×2 (09:00→20:20)
[2018-02-15] MEDS: ASPIRIN 81 MG CHEWABLE TABLET PO SCH (20:20)
--- NOTE | 2018-02-15 20:55 | PN ---
Date of Progress Note: 02/15/2018 Basically, status quo. His lactic acid has improved minimally with no clinical evidence of sepsis. Negative cultures to date, same basic picture as before. Perhaps, bolus improved his responsiveness to some extent; however, minimal. Again a long discussion was held with the benefits of hospice as a pposed to utilizing home health. After much discussion, the patient's is obviously having some problems with decision. However, when I left she just told me that she had decided to go with [facility]. The next scenario is delivery of the tube feedings. Apparently, with some questionable which bra nd and this should be shift tomorrow when he could be discharged. HR/MODL Voice ID: [id number] Report ID: [id number]
[2018-02-16] MEDS: INSULIN -REGULAR HUMAN 50 UNIT/0.5 ML ML SQ SCH ×4 (00:04→18:00)
[2018-02-16] MEDS: NA CHLORIDE 0.9% 1,000 ML IV SCH (05:29)
[2018-02-16] MEDS: FAMOTIDINE 20 MG/2 ML VIAL IV SCH (08:51)
[2018-02-16] MEDS: FINASTERIDE 5 MG TAB PO SCH (08:51)
[2018-02-16] MEDS: CEFEPIME/SWI 1gm 1 GM/10 ML SYR IV SCH (08:51)
[2018-02-16] MEDS: GLUCERNA 1.5 CAL 1,000 ML BOT FT SCH ×4 (08:52→18:03)
[2018-02-16 09:17] VITALS: O2SAT 93
--- NOTE | 2018-02-16 10:30 | P.DS ---
Admission Date: 02/01/18 Discharge Date: 02/16/18 Primary Care Provider: Dr. Falcon(I am covering for him) Disposition: HOSPICE-HOME Discharge Condition: FAIR Reason for Admission: Altered mental status Consultations: Surgery-Dr. King Procedures: CT head: COMPARISON: CT imaging November 29, 2017 TECHNIQUE: Axial 5 mm thick images of the head were obtained without IV contrast. All CT scans are performed using dose optimization technique as appropriate and may include automated exposure control or mA/KV adjustment according to patient size. FINDINGS: No intracranial hemorrhage, mass, edema or shift of mid-line structures. No acute infarction changes seen. Advanced atrophy and chronic ischemic changes are present. Ventricles are in proportion to volume loss. Arterial calcifications are present. Intracranial findings are similar to the recent November study. Mastoid air cells and visualized portions of the paranasal sinuses are clear. No acute bony findings. IMPRESSION: No acute intracranial finding. Advanced atrophy and chronic ischemic change similar the November 29 imaging. MBS: COMPARISON: None. TECHNIQUE: The patient was given liquid, semi-solid and solid forms of barium. Lateral view fluoroscopic imaging was performed in conjunction with speech pathology service. FINDINGS: Multiple episodes of laryngeal penetration observed. Patient was unable to clear this contrast. Aspiration occurred with thin liquid barium, nectar and honey consistency contrast. Contrast was seen in the valleculae and piriform sinuses. Delayed swallow reflex noted. There were 31 cine loop acquisitions obtained. Fluoro time was 4 minutes 6 seconds. IMPRESSION: Modified barium swallow as detailed above and on speech pathology report. 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 Patient came in with altered mental status. Infectious process was likely. Patient was admitted for further treatment. Patient had been declining in health. Hospital Course: I am covering for attending Dr. Falcon Patient presented with altered mental status. Patient with multiple medical problems including previous CVAs, seizure disorder, diabetes, BPH and GERD. Patient had been declining in health with severe malnutrition and failure to thrive. Patient was admitted for further evaluation. Patient found to have toxic encephalopathy likely related to sepsis buttocks ulcer. Patient was on IV on antibiotic therapy. This was complicated due to his underlying multiple medical issues. Patient is nonverbal with wasting to the dorsal and extremities. Patient in poor health. As mentioned previously patient had been declining in health. Patient had difficulty with swallowing. This was further assessed. Patient failed modified barium swallow. Family requested PEG tube placement. This was eventually placed. During the course of his stay advanced directives were addressed multiple times. eventually decided to change his status to do not resuscitate. now understands that his condition is terminal. Hospice was consulted to provide options. has agreed for hospice for the patient. This has been arranged. Hospice will be continued at home. Patient will continue with tube feeds with equivalent feed of Glucerna 1.5 hill at 5 cans per day. Hospice will continue to reassess. Hospice to adjust medication. will reconsider about discontinuing tube feeds in the near future if his condition continues to decline. This will likely prolong his current status. This was addressed in detail prior to discharge. Further adjustment can be done by hospice. Patient will maintain oxygen saturations above 90%. Continued care to be done by hospice. understands patient has terminal illness. Patient has diabetes mellitus. At discharge Glucophage has been discontinued. This can be monitored closely. Hospice to consider sliding scale. Patient has BPH. Patient will continue with medication Proscar 5 mg daily. Patient has GERD. Patient will continue with Pepcid 20 mg 1 pill twice daily. Patient with history of CVA in the past. Patient may continue with aspirin 81 mg daily. Vital Signs/Physical Exam: Temp Pulse Resp BP Pulse Ox 98.5 F 120 H 20 174/92 H 93 02/16/18 08:00 02/16/18 08:00 02/16/18 08:00 02/16/18 08:00 02/16/18 08:00 General: Other (Patient nonverbal. Muscle wasting to the extremities and torso. ) HEENT: Atraumatic, Other (Mouth dry) Neck: Supple Respiratory: Clear to auscultation bilaterally Cardiovascular: Abnormal pulses (Sinus tachycardia) Gastrointestinal: Normal bowel sounds, Non-distended, Other (PEG tube in place) Musculoskeletal: Contractures Neurological: Other (Nonverbal) Laboratory Data at Discharge: WBC 11.4 K/uL (4.3-10.9) H 02/14/18 05:29 Hgb 14.8 g/dL (13.6-17.9) 02/14/18 05:29 Hct 44.4 % (39.6-49.0) 02/14/18 05:29 Plt Count 346 K/uL (152-406) 02/14/18 05:29 PT 14.9 SECONDS (9.5-12.5) H 01/31/18 20:45 INR 1.26 01/31/18 20:45 Sodium 152 mmol/L (136-145) H 02/14/18 05:29 Potassium 4.4 mmol/L (3.5-5.1) 02/14/18 05:29 BUN 46 mg/dL (7-18) H 02/14/18 05:29 Creatinine 1.20 mg/dL (0.55-1.3) 02/14/18 05:29 Glucose 189 mg/dL (74-106) H 02/14/18 05:29 Phosphorus 2.6 mg/dL (2.5-4.9) 02/12/18 22:12 Magnesium 2.2 mg/dL (1.8-2.4) 02/12/18 22:12 Total Bilirubin 0.2 mg/dL (0.2-1.0) 02/12/18 22:12 AST 72 U/L (15-37) H 02/12/18 22:12 ALT 127 U/L (12-78) H 02/12/18 22:12 Alkaline Phosphatase 151 U/L (45-117) H 02/12/18 22:12 Lipase 96 U/L (73-393) 01/31/18 20:45 Home Medications: Aspirin 81 mg PO BEDTIME 11/29/17 Cholecalciferol (Vitamin D3) [Vitamin D3] 5,000 unit PO BID 11/29/17 Finasteride 5 mg PO DAILY 11/29/17 Famotidine [Pepcid] 20 mg PO BID #60 tab 02/16/18 Glucerna 1.5 Hill 237 ml FT 5XD #150 bot 02/16/18 New Medications: Famotidine [Pepcid] 20 mg PO BID #60 tab Glucerna 1.5 Hill 237 ml FT 5XD #150 bot Patient Discharge Instructions: 1. Patient will go home with hospice. 2. Advanced directives address in detail. Patient DNR. Patient now with hospice. Patient will continue with hospice. PEG tube in place. Patient will continue with tube feeds with equivalent feed of Glucerna 1.5 hill at 5 cans per day. Hospice will continue to reassess. Hospice to adjust medication. will reconsider about discontinuing tube feeds in the near future if his condition continues to decline. This will likely prolong his current status. This was addressed in detail prior to discharge. Further adjustment can be done by hospice. Patient will maintain oxygen saturations above 90%. Continued care to be done by hospice. understands patient has terminal illness. 3. Patient has diabetes mellitus. At discharge Glucophage has been discontinued. This can be monitored closely. Hospice to consider sliding scale. 4. Patient has BPH. Patient will continue with medication Proscar 5 mg daily. 5. Patient has GERD. Patient will continue with Pepcid 20 mg 1 pill twice daily. 6. Patient with history of CVA in the past. Patient may continue with aspirin 81 mg daily. Diet: PEG tube feeds Activity: Bedrest Time spent managing pt's care (in minutes): 55
[2018-02-16 17:39] VITALS: BP 110/66; TEMP 99.3
== END 2018-02-16 18:49 | disposition hospice, home (50) | DRG 871 ==
LOC: ER 19:44 → ERHOLD 02-01 02:03 → 4TH 02-01 02:33
PROVIDERS: ADMIT Family Medicine; ATTEND Family Medicine
PROC: 0DH63UZ Insertion of Feeding Device into Stomach, Percutaneous Approach (ICD-10-PCS; principal; 2018-02-06 10:30)
PROC: 3E0G76Z Introduction of Nutritional Substance into Upper GI, Via Natural or Artificial Opening (ICD-10-PCS; 2018-02-08)
DX: A41.9 Sepsis, unspecified organism (principal); L89.153 Pressure ulcer of sacral region, stage 3; G92 Toxic encephalopathy; E43 Unspecified severe protein-calorie malnutrition; E87.0 Hyperosmolality and hypernatremia; L98.419 Non-pressure chronic ulcer of buttock with unspecified severity; Z88.0 Allergy status to penicillin; Z88.2 Allergy status to sulfonamides; Z88.8 Allergy status to other drugs, medicaments and biological substances; K29.40 Chronic atrophic gastritis without bleeding; K64.5 Perianal venous thrombosis; Z86.73 Personal history of transient ischemic attack (TIA), and cerebral infarction without residual deficits; E86.0 Dehydration; R13.12 Dysphagia, oropharyngeal phase; G40.909 Epilepsy, unspecified, not intractable, without status epilepticus; N40.0 Benign prostatic hyperplasia without lower urinary tract symptoms; K21.9 Gastro-esophageal reflux disease without esophagitis; G24.9 Dystonia, unspecified; G25.5 Other chorea; E11.9 Type 2 diabetes mellitus without complications; Z79.84 Long term (current) use of oral hypoglycemic drugs; M62.50 Muscle wasting and atrophy, not elsewhere classified, unspecified site; R62.7 Adult failure to thrive; Z68.20 Body mass index [BMI] 20.0-20.9, adult
CPT/HCPCS: 36415; 70450; 71045; 74230; 80048; 80053; 80076; 81003; 81015; 82550; 82962; 83605; 83690; 83735; 84100; 84132; 84134; 84145; 84484; 85025; 85610; 87040; 87205; 92507; 92526; 93005; 96361; 96365; 99285; J0692; J1650; J2370; J2704; J2765; J7030